=== PATIENT | male | born 1965 | race Caucasian/White ===

== ENCOUNTER → 2018-03-31 | Outpatient (CLI) | payer OTHER, SELFPAY ==
[2017-02-15 10:06] VITALS: BMI 28.7
[2018-03-31 17:59] LABS: ALB/GLOB Ratio 1.1 RATIO (0.9-2.4); AST(SGOT) 16 U/L (15-37); Alanine Aminotransfer ALT/SGPT 35 U/L (16-61); Albumin, Serum 3.8 g/dL (3.2-5.0); Alkaline Phosphatase 53 U/L (45-117); Anion Gap 6 (5-15); BUN 15 mg/dL (7-18); BUN/Creat Ratio 12.1 RATIO (10-20); Chloride 108 mmol/L (98-107); Cholesterol 159 mg/dL (200); Creatinine, Serum 1.24 mg/dL (0.70-1.30); EST Glomerular Filtration Rate 65 mL/min (>60); Est Glom Filt Rate - Afr Amer 79 mL/min (>60); Globulin 3.5 g/dL (2.2-4.2); Glucose 90 mg/dL (74-106); High Density Lipoprotein 44 mg/dL; Potassium 3.9 mmol/L (3.5-5.1); Protein, Total 7.3 g/dL (6.4-8.2); Sodium Level 141 mmol/L (136-145); Triglycerides 141 mg/dL; Very Low Density Lipoprotein 28 mg/dL (5-40)
[2018-04-04 09:57] LABS: Lipoprotein A <10 nmol/L (<75)
--- OUTSIDE RECORDS SUMMARY | 2018-07-14 20:19 | XMS RPT_ITS | CCD ---
:1965 External Reference #:[id number] Author Organization [facility] Care Team Providers Name Role Phone Unavailable Unavailable Unavailable Medications Medication Name Sig Date Prescriber Location No information No information [facility] available. available. [facility] (69969) Problems Active Problems Category Problem Name Status Date Location Joint disorders and Derangement of medial Active 08-14-2016 [facility] dislocations; meniscus Sports Medicine and trauma-related Orthopaedics (83236) Osteoarthritis Osteoarthritis of knee Active 09-06-2016 [facility] (17293) Past or Other Problems Category Problem Name Status Date Location Other connective Pes anserinus Completed 08-14-2016 [facility] tissue disease bursitis [facility] (91012) Other injuries and Other injury of Completed 09-06-2016 [facility] conditions due to unspecified body Sports Medicine and external causes region Orthopaedics (86624) Other non-traumatic Knee pain Completed 08-14-2016 [facility] joint disorders [facility] (27123) Superficial injury; Other injury of Completed 09-06-2016 [facility] contusion unspecified body Sports Medicine and region Orthopaedics (03536) Results Result Name Value Range Unit Interpretation Flag Date Location office visit on null Documentation of T Invalid 09-06-2016 [facility] Medical current medications Interpretation Code 09-06-2016 [facility] (procedure[facility] (00422) Documentation of Done Invalid 09-06-2016 [facility] current medications Interpretation Code 09-06-2016 [facility] (procedure[facility] (97050) Protein mass conc T 09-06-2016 [facility] 09-06-2016 [facility] (00644) Protein mass conc Done 09-06-2016 [facility] 09-06-2016 [facility] (88860) Tobacco smoking Never Invalid 09-06-2016 - [facility] status [facility] Interpretation Code 09-06-2016 [facility] (68811) Tobacco smoking Never 09-06-2016 - [facility] smoker 09-06-2016 [facility] (66478) Tobacco use CPHS Never Invalid 09-06-2016 - [facility] smoker Interpretation Code 09-06-2016 [facility] (30740) Documentation of T Invalid 08-14-2016 - [facility] current medications Interpretation Code 08-14-2016 [facility] (procedure) [facility] (14847) Documentation of Done Invalid 08-14-2016 - [facility] current medications Interpretation Code 08-14-2016 [facility] (procedure[facility] (76639) Protein mass conc Done 08-14-2016 - [facility] 08-14-2016 [facility] (43118) Protein mass conc T 08-14-2016 - [facility] 08-14-2016 [facility] (85274) Tobacco smoking Never Invalid 08-14-2016 - [facility] status NHIS Interpretation Code 08-14-2016 [facility] (70813) Tobacco smoking Never 08-14-2016 - [facility] status [facility]IS smoker 08-14-2016 [facility] (55957) Tobacco use CPHS Never Invalid 08-14-2016 - [facility] smoker Interpretation Code 08-14-2016 [facility] (00416) Vital Signs Vital Sign Description Value / Unit Date Location The following section is limited to 5 entries per type and includes entries from the following time range: 20160814 - 20160814. BMI (Body Mass Index) 28.69 kg/m2 08-14-2016 - 08-14-2016 [facility] (03043) Height 177.8 cm 08-14-2016 - 08-14-2016 [facility] (02100) Weight 90.72 kg 08-14-2016 - 08-14-2016 [facility] (74182) Plan of Treatment Plan Description Date Location Appointment Appointment 09-06-2016 - [facility] 09-06-2016 [facility] (13575) MRI Joint Lower MRI Joint Lower 08-14-2016 - [facility] Extremity Extremity 08-14-2016 [facility] (98177) X-Ray, Knee X-Ray, Knee 08-14-2016 - [facility] 08-14-2016 [facility] (37099) The following information is from the original human readable content Type Date Detail Appointment 01:30 PM Ani Bender, [address] [place] [address], [address], [place], [address], Pending order X-Ray, Knee Pending order MRI Joint Lower Extremity Type Date Detail Pending order X-Ray, Knee Pending order MRI Joint Lower Extremity Additional Source Comments FOR RECORDS PERTAINING TO PATIENTS WHO ARE OR HAVE BEEN ENROLLED IN A CHEMICAL DEPENDENCY/SUBSTANCE ABUSE PROGRAM, SOME INFORMATION MAY BE OMITTED. This clinical summary was aggregated from multiple sources. Caution should be exercised in using it in the provision of clinical care. This summary normalizes information from multiple sources, and as a consequence, information in this document may materially changethe coding, format and clinical context of patient data. In addition, data may be omittedin some cases. CLINICAL DECISIONS SHOULD BE BASED ON THE PRIMARY CLINICAL RECORDS. [facility] provides no warranty or guarantee of the accuracy or completeness of information in this document.
== END | disposition home or self-care (01) ==
LOC: BFHLAB 07-14 15:48
PROVIDERS: Family Provider Family Medicine; PCP Family Medicine; Visit Provider Family Medicine
DX: Z00.00 Encounter for general adult medical examination without abnormal findings (principal); Z80.0 Family history of malignant neoplasm of digestive organs
CPT/HCPCS: 36415; 80053; 80061; 83695

== ENCOUNTER 2018-05-02 08:10 | Day surgery (SDC) | payer OTHER, SELFPAY ==
[2018-05-02] VITALS (8 sets, daily range): BP systolic 92–131; BP diastolic 55–93; PULSE 54–82; RESP 16; TEMP 36.3–36.8; O2SAT 95–100; BMI 29.0
--- NOTE | 2018-05-02 09:15 | COLBX_PTH ---
PATIENT: HELENA SCHAFFER LOC: EN U#:[id number] AGE/SX: 53/M ROOM: RE05/02/[address]: Dr. Feliberto Chinchilla MD : 1965 BED: DIS: 05/02/2018 SPEC #: [id number] RECD: 05/02/18 09:52 STATUS: CINTHYA VASHTI #: [id number] PRIMITIVO: 05/02/18 09:[address]: Feliberto Chinchilla DEPT: SURGICAL PATHOLOGY RECD BY: Klaus Abdul ENTERED: 05/02/18 11:31 SP TYPE: COLON BX OTHR DR: Dr. Sánchez Bond, Tissues: SPLENIC FLEXURE Procedures: Surgery Specimen Level IV HEADER OPERATION: Colonoscopy (MOD) PRE-OP DIAGNOSIS: Screening TISSUE SUBMITTED: Biopsy of splenic flexure polyp MICROSCOPIC DIAGNOSIS Splenic flexure polyp, biopsy: Fragments of hyperplastic polyp. SJ:antwan 05/05/18 MICROSCOPIC DESCRIPTION Slides are reviewed. GROSS DESCRIPTION Received in fixative is one container labeled with the patient's name and designated splenic flexure polyp. The specimen consists of two irregular fragments of light [place] soft tissue that in aggregate measure 0.7 x 0.5 x 0.1 cm. The specimen is totally submitted in one cassette. / AM:antwan 05/02/18 TC:1 CPT: 82184
--- NOTE | 2018-05-02 09:20 | HP.PCM_ITS ---
Problem List (1) Screening for intestinal cancer Status: Acute History of Present Illness Date of Admission: 05/02/18 The patient is a 53 year old M who presents for screening colonoscopy. He has never had a previous procedure. He denies bright red blood per rectum or melena. No abdominal pain. He otherwise claims to be in good health. He is not on any anticoagulants Past Medical History Medical History: Medical History (Last Reviewed 02/15/17 @ 10:14 by Mira Rincon) [place] teeth extracted K08.499 Allergies naproxen Adverse Reaction (Verified 05/02/18 08:32) Hives Home Medications: Ambulatory Orders Medication Instructions Recorded NK 04/30/18 Smoking Status: Never smoker Tobacco Use: Non-smoker Review of Systems Constitutional: Denies: Anorexia HEENT: Denies: Difficulty Swallowing Cardiovascular: Denies: Chest Pain Respiratory: Denies: Cough Gastrointestinal: Denies: Abdominal Pain, Melena Musculoskeletal: Reports: Joint Pain Psychiatric: Denies: Anxiety Endocrine: Denies: Change in Body Habitus VTE Information - Inpt Only VTE Present on Admission: No Patient Problems: Active and Suspected Problems (Last Reviewed 02/15/17 @ 10:14 by Mira Rincon) Screening for intestinal cancer (Acute) - Physical Exam General: Alert, Oriented x3, Cooperative, No apparent distress HEENT: Atraumatic Oral: Moist Mucosa Neck: Supple Lungs: Clear to auscultation, Normal air movement Cardiovascular: Regular rate, Regular Rhythm Abdomen: Bowel Sounds Present, Soft, Non Tender Extremities: No Calf Tenderness Psych/Mental Status: Normal Affect Vital Signs Temp Pulse Resp BP Pulse Ox 98.3 F 82 16 123/79 H 100 05/02/18 08:33 05/02/18 08:33 05/02/18 08:33 05/02/18 08:33 05/02/18 08:33 Oxygen Delivery Method Room Air Weight: 202 lb 9.677 oz Body Mass Index (BMI) 29.0 Assessment/Plan All Active Problems (Last Reviewed 02/15/17 @ 10:14 by Mira Rincon) Screening for intestinal cancer (Acute) 53-year-old gentleman who presents for screening colonoscopy. I have discussed with him technique, benefits, risks, alternatives. He has had an opportunity to ask and have questions answered. He presents via our open access program. We will proceed as noted. Feliberto Chinchilla M.D., F.A.C.S.
--- NOTE | 2018-05-02 09:41 | OP.ENDO_ITS ---
05/02/2018 Sánchez Bond [address] [place] [address] Re : Colonoscopy procedure for Sukhjinder Lopez Dear Dr. Bond This procedure was performed on Wednesday, May 02, 2018. My impressions and recommendations are as follows: Impressions : - One 5 mm polyp at the splenic flexure, removed with a cold biopsy forceps. Resected and retrieved. - The examination was otherwise normal. Recommendations : - Discharge patient to home. - Resume previous diet. - Continue present medications. - Repeat colonoscopy in 5 years for surveillance based on pathology results. - Telephone my office for pathology results in 1 week. My findings are described in the full procedure note, which is enclosed. If I can be of further assistance, please feel free to contact me at Doctor phone number(s): Work: . Sincerely, Feliberto Chinchilla MD 05/02/2018 9:40:40 AM This report has been signed electronically.
== END 2018-05-02 10:34 | disposition home or self-care (01) ==
LOC: EN 08:10 → AC 08:12
PROVIDERS: Family Provider Family Medicine; PCP Family Medicine; Referring Provider Surgery; Visit Provider Surgery
PROC: 0DJD8ZZ Inspection of Lower Intestinal Tract, Via Natural or Artificial Opening Endoscopic (ICD-10-PCS; CPT 45378; principal; 2018-05-02 09:10)
DX: Z12.11 Encounter for screening for malignant neoplasm of colon (principal); K63.5 Polyp of colon
CPT/HCPCS: 45380; 88305; 99152; 99153; J7120

== ENCOUNTER → 2019-09-24 09:49 | Outpatient (CLI) | payer OTHER, SELFPAY ==
[2019-09-24 09:20] VITALS: BMI 29.0
--- NOTE | 2019-09-24 09:50 | RAD_ITS ---
STUDY: X-RAY - RIGHT KNEE REASON FOR EXAM: Male, 54 years old. Bilateral knee pain. TECHNIQUE: 4 view(s) of the knee. COMPARISON: None. FINDINGS: Normal visualized distal femur. Normal visualized proximal tibia and fibula. Normal proximal tibiofibular articulation. There is no acute fracture, dislocation or destructive osseous pathology. Normal medial femorotibial compartment. Normal lateral femorotibial compartment. Normal patellofemoral articulation. There is no demonstrated joint effusion. The soft tissue structures are unremarkable. RAD/Knee 4 or More Views IMPRESSION: Normal x-ray examination of the knee. Electronically Signed: Vinod Landis DO at 16:51 EDT Tel [phone], Service support ,
--- NOTE | 2019-09-24 09:55 | RAD_ITS ---
STUDY: X-RAY - LEFT KNEE REASON FOR EXAM: Male, 54 years old. Bilateral knee pain. TECHNIQUE: 4 view(s) of the knee. COMPARISON: None. FINDINGS: Normal visualized distal femur. Normal visualized proximal tibia and fibula. Normal proximal tibiofibular articulation. There is no acute fracture, dislocation or destructive osseous pathology. Normal medial femorotibial compartment. There is a small irregularity along the articular surface of the lateral femoral condyle. Otherwise normal lateral femorotibial compartment. There is mild degenerative arthrosis of the patellofemoral articulation. There is no demonstrated joint effusion. The soft tissue structures are unremarkable. RAD/Knee 4 or More Views IMPRESSION: Mild arthrosis without fracture or dislocation. Electronically Signed: Vinod Landis DO at 16:52 EDT Tel [phone], Service support ,
== END ==
PROVIDERS: PCP Family Medicine; Referring Provider Physician Assistant; Visit Provider Physician Assistant
DX: M17.0 Bilateral primary osteoarthritis of knee (principal)
CPT/HCPCS: 73564

== ENCOUNTER → 2021-03-09 11:55 | Outpatient (CLI) | payer OTHER, SELFPAY ==
[2021-03-09 15:14] LABS: Absolute Lymphocyte Count 1.33 X10^3/uL (0.83-4.51); Absolute Neutrophil Count 4.3 X10^3/uL (2.0-7.7); Basophil# 0.07 X10^3/uL; Basophil% 1.1 % (0-1); Eosinophil# 0.18 X10^3/uL; Eosinophils% 2.8 % (0-5); Hematocrit 45.7 % (40-54); Hemoglobin 15.6 g/dL (13.0-16.5); Lymphocyte # 1.33 X10^3/ul (0.83-4.51); Lymphocyte % 20.6 % (19-41); Mean Corp Hgb Conc 34.1 g/dL (32-36); Mean Corpuscular Hgb 31.3 pg (27.0-32.0); Mean Corpuscular Volume 91.8 fL (80-94); Monocyte# 0.59 X10^3/uL; Monocyte% 9.1 % (0-10); NRBC Flagged by Analyzer 0 % (0-5); Neutrophil # 4.25 X10^3/uL (2.7-7.7); Neutrophil % 65.9 % (47-70); Platelet Count 279 K/mm3 (150-450); RBC Distribution Width CV 12.1 % (11.6-14.6); RBC Distribution Width SD 40.8 fl (35.1-43.9); Red Blood Count 4.98 M/mm3 (4.6-6.2); White Blood Count 6.5 K/mm3 (4.4-11.0)
[2021-03-09 15:48] LABS: AST(SGOT) 17 U/L (15-37); Alanine Aminotransfer ALT/SGPT 38 U/L (16-61); Albumin, Serum 3.5 g/dL (3.2-5.0); Alkaline Phosphatase 47 U/L (45-117); Anion Gap 7 (5-15); BUN 15 mg/dL (7-18); BUN/Creat Ratio 12.9 RATIO (10-20); Calcium,Total 8.8 mg/dL (8.5-10.1); Chloride 107 mmol/L (98-107); Cholesterol 182 mg/dL (200); Creatinine, Serum 1.16 mg/dL (0.70-1.30); EST Glomerular Filtration Rate 70 mL/min (>60); Est Glom Filt Rate - Afr Amer 84 mL/min (>60); Globulin 3.6 g/dL (2.2-4.2); Glucose 88 mg/dL (74-106); High Density Lipoprotein 47 mg/dL; Potassium 4.1 mmol/L (3.5-5.1); Protein, Total 7.1 g/dL (6.4-8.2); Sodium Level 140 mmol/L (136-145); Triglycerides 89 mg/dL; Very Low Density Lipoprotein 18 mg/dL (5-40)
== END ==
PROVIDERS: PCP Family Medicine; Referring Provider Family Medicine; Visit Provider Family Medicine
DX: Z00.00 Encounter for general adult medical examination without abnormal findings (principal); Z12.5 Encounter for screening for malignant neoplasm of prostate
CPT/HCPCS: 36415; 80053; 80061; 84153; 85025; G0103

== ENCOUNTER 2021-03-14 18:22 | Outpatient (CLI) | payer OTHER, SELFPAY | END 2021-03-14 23:59 | disposition short-term general hospital (02) | LOC: LABSPEC 03-15 08:33 | PROVIDERS: PCP Family Medicine; Visit Provider Family Medicine | DX: U07.1 COVID-19 (principal) | CPT/HCPCS: 87635; U0003; U0005 ==

== ENCOUNTER → 2021-09-28 | Outpatient (CLI) | payer OTHER, SELFPAY ==
--- NOTE | 2021-09-28 17:07 | RAD_ITS ---
EXAM: XR CHEST, 2 VIEWS CLINICAL INDICATION: CHEST PAIN TECHNIQUE: Frontal and lateral views of the chest. This report was created using [employer] report generation technology. COMPARISON: None. FINDINGS: LUNGS AND PLEURAL SPACES: Unremarkable. No consolidation or edema. No pneumothorax. No effusion. HEART: Unremarkable. Cardiac silhouette not enlarged. MEDIASTINUM: Central airways and mediastinal contour are unremarkable. BONES/JOINTS: Unremarkable. SOFT TISSUES: Unremarkable. RAD/Chest PA and Lateral IMPRESSION: No radiographic evidence of acute cardiopulmonary disease. Electronically Signed: Kirt Guzman MD at 3:08 EDT ,
== END | disposition home or self-care (01) ==
LOC: MTRAD 17:05
PROVIDERS: PCP Family Medicine; Referring Provider Family Medicine; Visit Provider Family Medicine
DX: R07.9 Chest pain, unspecified (principal)
CPT/HCPCS: 71046

== ENCOUNTER → 2021-10-27 | Outpatient (CLI) | payer OTHER, SELFPAY ==
--- NOTE | 2021-10-27 10:41 | STE_ITS ---
Reason For Study: CHEST PAIN Stress Results Protocol: Manuel Protocol Maximum Predicted HR: 165 bpm Target HR: 140 bpm % Maximum Predicted HR: 97 % DurationHeart Rate Stage (mm:ss) (bpm) BP BASELINE 72 142/78 STAGE 1 3:00 106 160/80 STAGE 2 3:00 117 160/80 STAGD 3 3:00 134 164/68 STAGE 4 3:00 160 168/70 RECOVERY 100 124/70 Stress Duration: 12:00 mm:ss Maximum Stress HR: 160 bpm METS: 13 Baseline Echocardiogram Findings Stress Echo Wall motion Data Resting WM Intermediate WM Stress WM Resting Wall Motion Wall Motion Stress All segments Normal. All segments Hyperkinetic. Ejection Fraction 60 %. Ejection Fraction 70 %. Stress Results Heart rate response: Technically adequate: Percent predicted maximal heart rate greater than 85% Blood pressure response: Resting hypertension-appropriate response Rhythm: There was an isolated PVC during exercise Functional capacity: Good Stopped secondary to: Dyspnea. EKG Data Baseline ECG: Normal sinus rhythm. Peak exercise ECG: No obvious ECG change. Symptoms with Stress No complaint of chest discomfort during exercise or recovery. ECHO/Stress Test Echo w/o Contrast Interpretation Summary Contrast injection performed Negative: Technically adequate (percent predicted maximal heart gradient 85%) s tress echocardiogram Ordering Physician: Sánchez Bond Performed By: Rajendra Damico RCS
== END | disposition home or self-care (01) ==
LOC: CVS 10:35
PROVIDERS: PCP Family Medicine; Visit Provider Family Medicine
DX: R07.9 Chest pain, unspecified (principal)
CPT/HCPCS: 93017; 93350

== ENCOUNTER 2022-11-25 11:54 | Emergency (ER) | payer OTHER, SELFPAY ==
[2022-11-25 11:55] VITALS: BP 147/65; PULSE 80; RESP 18; TEMP 36.3; O2SAT 97; BMI 29.4
[2022-11-25 11:57] VITALS: BMI 29.4
[2022-11-25 12:18] LABS: Bedside Glucose 102 mg/dL (74-106)
--- NOTE | 2022-11-25 12:48 | EKG12_ITS ---
Test Reason : Blood Pressure : / mmHG Vent. Rate : 067 BPM Atrial Rate : 067 BPM P-R Int : 132 ms QRS Dur : 078 ms QT Int : 408 ms P-R-T Axes : 027 -12 006 degrees QTc Int : 431 ms Normal sinus rhythm Normal ECG Confirmed by SHAKIRA BENITEZ MD ([id number]), food expeditor OMAR IRWIN ([id number]) on 11/27/2022 2:00:31 PM Referred By: Confirmed By:SHAKIRA BENITEZ MD
--- NOTE | 2022-11-25 12:48 | RAD_ITS ---
STUDY: X-RAY CHEST REASON FOR EXAM: Male, 57 years old. CAD TECHNIQUE: Single AP portable view of the chest. COMPARISON: 09/28/2021 FINDINGS: EKG leads overlie the chest The lungs are clear and expanded. There is no demonstrated pleural abnormality. Normal size heart. Normal mediastinum and charanjit. Normal visualized pulmonary arteries. Normal visualized aortic arch and descending thoracic aorta. Normal visualized thoracic spine. Normal visualized ribs, clavicles, and shoulders. There is no demonstrated abnormality of the visualized soft tissue structures of the upper abdomen. RAD/Chest 1 View (Portable) IMPRESSION: Normal x-ray examination of the chest. Electronically Signed: Tulio Muñoz MD at 13:38 EDT ,
--- NOTE | 2022-11-25 12:49 | EDS_ITS ---
HPI History of Present Illness Chief Complaint: Neuro S/Sx Narrative Narrative: 57-year-old male who denies significant past medical history presents with lightheadedness that began this morning. He also thought that maybe his left biceps area was numb and tingly this morning as well. He noticed the lightheadedness first. He states that he worries about elevated blood pressure at times, and when he took it a few weeks ago it was borderline in the 140 systolic. He denies any chest pain or shortness of breath, no recent nausea or vomiting, no diarrhea. He did note that over the last few weeks there were brief periods of times where he felt lightheaded, like he needed to eat food, and when he did, he felt immediately improved. He presents because of the paresthesia of his left biceps area and perhaps some numbness of his left fingertips that is essentially resolved, and more so because of the lightheadedness. [facility] Medical History Screening for intestinal cancer Allergy/AdvReac Type Severity Reaction Status Date / Time naproxen AdvReac Hives Verified 03/17/21 14:21 Family History Mother Breast cancer Father CAD (coronary artery disease) Surgical History History of colonoscopy (~04/2018) [place] teeth extracted Social History Smoking Status: Never smoker alcohol intake: current details: <1 per day ROS ROS ED ROS Narrative Constitutional: No fever, no chills. HEENT: No sore throat. No neck pain. No loss of vision. No rhinorrhea. Cardiovascular: No chest pain. No palpitations. No pedal edema. Respiratory: No cough, no shortness of breath. Abdominal: No abdominal pain. No nausea. No vomiting. Genitourinary: No dysuria. No hematuria. Musculoskeletal: No myalgias. No arthralgias. Neurologic: No headaches. No dizziness. Positive lightheadedness. Paresth esias of left arm/fingertips-resolved Skin: No rash. No change in color. Psychiatric: No depression. No anxiety. EXAM Physical Exam Narrative Exam Narrative: Afebrile. Vital signs noted. HEENT: Normocephalic. Atraumatic. PERRL, EOMI. Neck soft and supple. No point tenderness or step off. Cardiovascular: Regular rate and rhythm. No murmurs, rubs, or gallops appreciated. Respiratory: No tachypnea. Lungs clear to auscultation bilaterally. Gastrointestinal: Abdomen soft, nontender, with normoactive bowel sounds. No rebound or guarding. Neurological: Awake. Alert. Nonfocal, nonlateralizing. NIH stroke scale equals 0. Skin: No rash. Normal color. No pallor. Musculoskeletal: No pedal edema. Full range of motion extremities. Const Vital Signs: 11/25/22 11:55 11/25/22 13:16 11/25/22 15:40 Temperature 97.3 F L Temperature Source Temporal Pulse Rate 80 51 L Pulse Rate [Lying] 56 L Pulse Rate [Sitting (for 1 minute prior to obtaining)] 59 L Pulse Rate [Standing (for 1 minute prior to obtaining)] 73 Respiratory Rate 18 14 Blood Pressure 147/65 H 135/85 H Blood Pressure [Lying] 126/81 H Blood Pressure [Sitting (for 1 minute prior to obtaining)] 133/91 H Blood Pressure [Standing (for 1 minute prior to obtaining)] 132/97 H Blood Pressure Mean 92 101 Blood Pressure Mean [Lying] 96 Blood Pressure Mean [Sitting (for 1 minute prior to obtaining)] 105 Blood Pressure Mean [Standing (for 1 minute prior to obtaining)] 108 Pulse Ox 97 99 Oxygen Delivery Method Room Air Room Air MDM MDM MDM Narrative Medical decision making narrative: Given his vague symptoms, stroke team was not called from triage. Upon my evaluation, I do not feel that stroke team is indicated as his NIH stroke scale is 0, and the history and physical is more suggestive of paresthesia versus cervical radiculopathy, and with his elevated blood pressure, this may be slight anxiety. I do feel that basic work-up should be performed to look for any dehydration, and I will also check his magnesium, and serial troponins as well for anginal equivalent of his left arm paresthesia. I do not feel CT of the brain is indicated. He has a normal neurological examination. EKG was obtained and interpreted by myself independently as normal sinus rhythm at 67 bpm without ectopy or acute ST changes. No STEMI. I reviewed his laboratory work and he has a normal white count of 5.6, hemoglobin normal at 16.1, hematocrit 46.1, platelet count normal at 298. His electrolyte panel is remarkable for chloride of 110 which I think is nonspecific, otherwise grossly unremarkable. Initial high-sensitivity troponin is 5. Repeat at 2 hours is also 5 for a delta of 0. Chest x-ray in 1 view interpreted by myself independently shows no evidence of an acute process, no pneumonia or pneumothorax. Additionally, I reviewed the radiology report which confirms my independent interpretation. His blood pressure has come down to borderline low at 135/85. I believe it is fluctuating, he was told he should keep an eye on his blood pressure, and follow-up with his primary care provider. I do not feel that any blood pressure medications need to be started currently. I do feel that there may be some anxiety regarding his blood pressure which causes slight elevation in it at times. Upon repeat examination he feels improved. I do not feel he requires observation or admission. I feel he can be discharged to follow-up with his primary care provider. Return instructions were reviewed. Disposition is discharged home in stable condition. History & Record Review Discussion w/independent historian: Patient Additional record(s) reviewed:: Prior outpatient record and Prior ED visit Lab Data Attestation: I reviewed the patient's lab results. Labs: Laboratory Results - last 24 hr 11/25/22 11/25/22 12:00 14:20 WBC 5.6 RBC 4.95 Hgb 16.1 Hct 46.1 MCV 93.1 MCH 32.5 H MCHC 34.9 RDW Std Deviation 40.4 RDW Coeff of Nathan 11.9 Plt Count 298 MPV 10.1 Immature Gran % (Auto) 0.400 Neut % (Auto) 69.6 Lymph % (Auto) 19.2 Waldo % (Auto) 8.1 Eos % (Auto) 1.6 Baso % (Auto) 1.1 H Absolute Neuts (auto) 3.9 Absolute Lymphs (auto) 1.07 Nucleated RBC % 0 Sodium 139 Potassium 4.0 Chloride 110 H Carbon Dioxide 26.0 Anion Gap 3 L BUN 13 Creatinine 1.22 Estim Creat Clear Calc 69.81 Est GFR (MDRD) Af Amer 79 Est GFR (MDRD) Non-Af 65 BUN/Creatinine Ratio 10.7 Glucose 102 Calcium 9.1 Magnesium 2.3 Troponin I High Sens 5 5 POC Glucose 102 Radiography Diagnostic Testing: Clinical Impression(s) from Imaging Studies Chest X-Ray 11/25/22 12:48 IMPRESSION: Normal x-ray examination of the chest. Electronically Signed: Tulio Muñoz MD at 13:38 EDT Reading Location ID and State: [address] [place] [address] , Service support , Discharge Plan Triage Chief Complaint: Neuro S/Sx ED Provider: Ton Cueto Dx/Rx/DC Orders Clinical Impression: Paresthesia, Lightheadedness Instructions: ED Near-Fainting, Uncertain Cause, ED Paraesthesias Primary Care Provider: Sánchez Bond Referrals: Sánchez Bond DO [Primary Care Provider] - 3-5 Days Disposition Disposition: Home, Self Care
[2022-11-25 13:00] LABS: Absolute Lymphocyte Count 1.07 X10^3/uL (0.83-4.51); Absolute Neutrophil Count 3.9 X10^3/uL (2.0-7.7); Basophil# 0.06 X10^3/uL; Basophil% 1.1 % (0-1); Eosinophil# 0.09 X10^3/uL; Eosinophils% 1.6 % (0-5); Hematocrit 46.1 % (40-54); Hemoglobin 16.1 g/dL (13.0-16.5); Lymphocyte # 1.07 X10^3/ul (0.83-4.51); Lymphocyte % 19.2 % (19-41); Mean Corp Hgb Conc 34.9 g/dL (32-36); Mean Corpuscular Hgb 32.5 pg (27.0-32.0); Mean Corpuscular Volume 93.1 fL (80-94); Mean Platelet Vol. 10.1 fl (6.2-12.0); Monocyte# 0.45 X10^3/uL; Monocyte% 8.1 % (0-10); NRBC Flagged by Analyzer 0 % (0-5); Neutrophil # 3.88 X10^3/uL (2.7-7.7); Neutrophil % 69.6 % (47-70); Platelet Count 298 K/mm3 (150-450); RBC Distribution Width CV 11.9 % (11.6-14.6); RBC Distribution Width SD 40.4 fl (35.1-43.9); Red Blood Count 4.95 M/mm3 (4.6-6.2); White Blood Count 5.6 K/mm3 (4.4-11.0)
[2022-11-25 13:16] VITALS: BP 126/81; BP 132/97; BP 133/91; PULSE 56; PULSE 59; PULSE 73
[2022-11-25 13:20] LABS: Anion Gap 3 (5-15); BUN 13 mg/dL (7-18); BUN/Creat Ratio 10.7 RATIO (10-20); Calcium,Total 9.1 mg/dL (8.5-10.1); Chloride 110 mmol/L (98-107); Creatinine, Serum 1.22 mg/dL (0.70-1.30); EST Glomerular Filtration Rate 65 mL/min (>60); Est Glom Filt Rate - Afr Amer 79 mL/min (>60); Estimated Creatinine Clearance 69.81 ml/min; Glucose 102 mg/dL (74-106); Magnesium 2.3 mg/dL (1.6-2.6); Sodium Level 139 mmol/L (136-145); Troponin-I HS (w/2H Reflex) 5 pg/mL (3.0-78.0)
[2022-11-25] MEDS: 0.9% Normal Saline (1000mL) 1,000 ML 1000 ML IV (13:28)
[2022-11-25 14:57] LABS: Reflex Troponin-HS? (from REC) Y
[2022-11-25 15:28] LABS: Troponin-I HS 5 pg/mL (3.0-78.0)
[2022-11-25 15:40] VITALS: BP 135/85; PULSE 51; RESP 14; O2SAT 99
== END 2022-11-25 16:15 | disposition home or self-care (01) ==
PROVIDERS: Emergency Provider Emergency Medicine; PCP Family Medicine; Visit Provider Emergency Medicine
DX: R42 Dizziness and giddiness (principal); R20.2 Paresthesia of skin
CPT/HCPCS: 71045; 80048; 82962; 83735; 84484; 85025; 93005; 96360; 96361; 99284; J7030

== ENCOUNTER → 2023-05-06 | Outpatient (CLI) | payer OTHER, SELFPAY ==
--- OUTSIDE RECORDS SUMMARY | 2023-05-06 10:46 | XMS RPT_ITS | CCD ---
Author Name Unknown Address [address] [place] [address] Organization [facility] Care Team Providers Care Kiln Remover Name Role Phone Adrienne Dixon Unavailable [phone] Jessie Armas Unavailable Adrienne Dixon Unavailable Zachary Bond DO A Primary Care Provider Varun Zachary MURPHY A Primary Care Provider ZACHARY BOND A Referring Unavailable VARUN, ZACHARY A Primary Care Unavailable ADRIENNE DIXON Attending Unavailab le VARUN, ZACHARY A Primary Care Unavailable ADRIENNE DIXON Attending Unavailab le VARUN, ZACHARY A Primary Care Unavailable ADRIENNE DIXON Referring Unavailab le ADRIENNE DIXON Attending Unavailab le VARUN, ZACHARY A Primary Care Unavailable ADRIENNE DIXON Referring Unavailab le VARUN, ZACHARY A Primary Care Unavailable ADRIENNE DIXON Referring Unavailab le CHICADRIENNE MENDOZA Attending Unavailab le Medications Completed/Discontinued Medications Medication Drug Class(es) Dates Sig (Normalized) Sig (Original) 2 ml sodium hyaluronate 10 mg/ml prefilled syringe (6 sources) Start: 11-15-2022 End: 11-15-2022 sodium hyaluronate 20 mg injection (EUFLEXXA) Problems Active Problems Problem Classification Problem Date Documented Date Episodic/Chronic Conditions associated with dizziness or vertigo (1 source) Dizziness; Translations: [Dizziness and giddiness] 11-25-2022 Episodic Joint disorders and dislocations; trauma-related (10 sources) Derangement of medial meniscus; Translations: [Loose body in knee, left knee] Onset: 08-14-2016 08-14-2016 Chronic Osteoarthritis (4 sources) Osteoarthritis of knee; Translations: [Primary gonarthrosis, bilateral] Onset: 09-06-2016 09-06-2016 Chronic Other connective tissue disease (1 source) Pain in left arm; Translations: [Pain in left arm] 11-25-2022 Episodic Other non-traumatic joint disorders (3 sources) Pain in right knee; Translations: [Pain in joint, lower leg] 11-02-2022 Episodic Residual codes; unclassified (1 source) Procedure not done; Translations: [Procedure and treatment not carried out, unspecified reason] Episodic Past or Other Problems Problem Classification Problem Date Documented Da te Episodic/Chronic Other connective tissue disease (5 sources) Pes anserinus bursitis; Translations: [Other bursitis of knee, left knee] Onset: 08-14-2016 08-14-2016 Episodic Other non-traumatic joint disorders (5 sources) Knee pain; Translations: [Pain in left knee] Onset: 08-14-2016 08-14-2016 Episodic Superficial injury; contusion (2 sources) Other injury of unspecified body region; Translations: [Other injury of unspecified body region] Onset: 09-06-2016 09-06-2016 Episodic Results Test Name Value Interpretation Reference Range Facil ity Vital Signs Date Time Vital Sign Value Performing Clinician Delmy boggs 08-14-2016 15:00-0400 BMI (Body Mass Index) 28.69 kg/m2 [facility] Work Phone: 08-14-2016 15:00-0400 Height 177.8 cm [facility] Work Phone: 08-14-2016 15:00-0400 Weight 90.72 kg [facility] Work Phone: Encounters Encounter Date Encounter Type Care Provider Facility Start: 11-25-2022 End: 11-25-2022 [facility] Facility:[facility] Start: 11-25-2022 End: 11-25-2022 Patient encounter procedure Vignesh Parks APRN.GEOPHYSICAL PROSPECTOR Work Phone: [facility] Procedures Date Procedure Procedure Detail Performing Clinician Start: 11-15-2022 Arthrocentesis aspir &/inj major jt/bursa w/o us Adrienne Dixon DO Work Phone: Start: 11-09-2022 Arthrocentesis aspir &/inj major jt/bursa w/o us Adrienne Dixon DO Work Phone: Start: 11-02-2022 Arthrocentesis aspir &/inj major jt/bursa w/o us Adrienne Dixon DO Work Phone: Plan of Treatment Date Care Activity Detail Author Start: 11-09-2022 Influenza vaccination [facility] Start: 03-11-2022 DEPRESSION ASSESSMENT DEPRESSION ASSESSMENT [facility] Start: 11-09-2021 Influenza vaccination INFLUENZA (#1) [facility] Start: 2021 PROSTATE CANCER SCREENING DISCUSSION PROSTATE CANCER SCREENING DISCUSSION [facility] Start: 11-23-2020 COVID-19 VACCINE (3 - Booster for Moderna series) COVID-19 VACCINE (3 - Booster for Moderna series) [facility] Start: 08-18-2020 COVID-19 VACCINE (3 - Moderna series) COVID-19 VACCINE (3 - Moderna series) [facility] Start: 09-06-2016 End: 09-06-2016 Appointment Appointment [facility] Work Phone: Start: 08-14-2016 End: 08-14-2016 Mri jnt of lwr extre w/o dye MRI Joint Lower Extremity [facility] Work Phone: Start: 08-14-2016 End: 08-14-2016 X-ray exam, knee, 4 or more X-Ray, Knee [facility] Work Phone: Start: 2016 SHINGRIX VACCINE (1 of 2) SHINGRIX VACCINE (1 of 2) [facility] Start: 2011 COLOGUARD (FIT-DNA) COLOGUARD (FIT-DNA) [facility] Start: 2011 Colonoscopy COLONOSCOPY [facility] Start: 2011 COLORECTAL CANCER SCREENING COLORECTAL CANCER SCREENING [facility] Start: [address] COLONOGRAPHY [facility] Start: 2011 DIABETES SCREEN DIABETES SCREEN [facility] Start: 2011 Diabetes Screening Diabetes Screening [facility] Start: 2011 FECAL OCCULT BLOOD FECAL OCCULT BLOOD [facility] Start: 2011 SIGMOIDOSCOPY SIGMOIDOSCOPY [facility] Start: 2001 Lipid 1996 panel - Serum or Plasma Lipid Screening [facility] Start: 2001 LIPID SCREEN LIPID SCREEN [facility] Start: 1985 Urine microalbumin profile [facility] Start: 1984 HEPATITIS C SCREENING HEPATITIS C SCREENING [facility] Start: 1984 HIV SCREENING HIV SCREENING [facility] Start: 1978 Adult depression screening assessment DEPRESSION SCREENING [facility] Start: 1966 HEPATITIS B (1 of 3 - 3-dose series) HEPATITIS B (1 of 3 - 3-dose series) [facility] Start: 1966 Hepatitis B Vaccine (1 of 3 - 3-dose series) Hepatitis B Vaccine (1 of 3 - 3-dose series) [facility] Immunizations Immunization Date Immunization Notes Care Provider Mary yanez 01-14-2010 influenza virus vaccine, unspecified formulation Rick Hawthorne APRN.[facility] Work Phone: [facility] Work Phone: Payers Date Payer Category Payer Unknown [facility] [employer] [employer] [id number] 2019-Present [phone] [address] [place] [address] PPO [id number] 2019 Unknown [facility] [employer] [place] [employer] [id number] 2019-Present [phone] [address] [place] [address] PPO [id number] 2019 Unknown [id number] Social History Date Type Detail Facility Tobacco smoking status NHIS Tobacco smoking consumption unknown [facility] Start: 1965 Sex Assigned At Not on file [facility] Start: 09-15-2021 End: 09-25-2021 Exposure to SARS-CoV-2 (event) Yes [facility] Work Phone: Start: 07-27-2022 Tobacco smoking status NHIS Never smoked tobacco [facility] Start: 07-27-2022 Tobacco use and exposure Smokeless tobacco non-user [facility] Start: 07-27-2022 End: 11-02-2022 History of Social function [facility] Start: 07-27-2022 End: 11-02-2022 Tobacco use panel [facility] National Score (1-100), lower number is lower risk 57 [facility] Clinical Notes 09-25-2021 to 11-25-2022 Vignesh Parks APRN.CNP - 11/25/2022 1:30 PM Adrienne Hendricks DO - 11/15/2022 11:16 AM Maren Roberson RN - 11/15/2022 11:12 AM Adrienne Hendricks DO - 11/09/2022 9:56 AM EDT Note Date & Type Note Facility 11-25-2022 Note HNO ID: [id number] Author: Vignesh Parks APRN.PASCUAL Service: ? Author Type: Nurse Practitioner Type: Progress Notes Filed: 11/25/2022 1:31 PM Note Text: Patient triaged at [facility]. Here today with left arm pain/no injury, and dizziness. Hx of heart disease. I will refer to ER. Patient in no visible distress at time of triage. [facility] 11-25-2022 History of Present illness Narrative Patient triaged at [facility]. Here today with left arm pain/no injury, and dizziness. Hx of heart disease. I will refer to ER. Patient in no visible distress at time of triage. documented in this encounter [facility] 11-15-2022 Note HNO ID: [id number] Author: Adrienne Dixon, DO Service: ? Author Type: Physician Type: Progress Notes Filed: 11/15/2022 12:05 PM Note Text: Follow Up Visit Chief Complaint Helena Lopez is a 57 year old male who presents today for follow up office visit. Patient presents with: Left Knee - Injections, Follow Up Right Knee - Follow Up, Injections History of Present Illness PAIN EVALUATION No data found in the last 1 encounters. HPI: Helena Lopez is a 57 year old male for a follow up visit / Eulfexxa injection to B/L knees. Denies pain. Is there any overall improvement in your condition? Yes, pain is getting better. C/o very mild pain every once in awhile. Any new injury, since being seen last: No REVIEW OF SYMPTOMS: Patient did not have, and does not currently have, any weight loss, malaise, fever, chills, headache, chest pain, chest pressure, palpitations, cough, shortness of breath, orthopnea, paroxsymal nocturnal dyspnea, nausea, vomiting, diarrhea, constipation, melena, hematochezia, urinary difficulties, prolonged bleeding, easily bruising, heat or cold intolerance, new onset joint pain or swelling, new onset extremity weakness or numbness, new onset auditory or visual disturbances, lightheadedness, dizziness, partial loss of consciousness or full loss of consciousness. No current outpatient medications on file. No current facility-administered medications for this visit. Physical Exam Vitals: There were no vitals taken for this visit. Psych: Pleasant, good affect and mood General Appearance: Well appearing, alert, in no acute distress, well-hydrated, well nourished.. Skin: Skin color, texture, turgor normal, no suspicious rashes or lesions. Peripheral Pulses: Normal. Neurologic: Gait normal. Reflexes normal and symmetric. Sensation grossly intact.. Lymph Nodes: No cervical lymphadenopathy, No supraclavicular lymphadenopathy, No axillary lymphadenopathy., and No inguinal lymphadenopathy.. Respiratory: No recent pulmonary infection, hemoptysis, chronic cough, or shortness of breath at rest Rheumatologic: Joint deformities: bilateral knee pain Ortho Exam Assessment and Plan Radiographs: No imaging to review. Impression: No diagnosis found. Today, in detail, through a thorough evaluation, we discussed possible etiologies of pain and our plans for further diagnostic and therapeutic interventions. We discussed strategies for decreasing pain and improving strength, stability and motion. Patient's questions were answered in detailed. Patient verbalizes understanding and agrees with the treatment plan as discussed. Discussed with patient possible options for treatment. Patient elected proceed with injection. Patient told not to submerge the injected area for 24 hours in a hot tub, or bath, injection may take 2 weeks for improvement to be noticed, follow-up in 2 -6 weeks if symptoms do not resolve. All questions answered patient agreement of plan. Apply ice Limit activities as discussed Rest Do not submerge limb in water for 24 hours Cont current meds Watch sugars/decrease carbs Call if warm/hot/red Discussed with patient that if the injection does not work after 2 to 4 weeks to come back for reevaluation. Discussed the next 3 days may feel worse before it feels better. Discussed if having continued pain to return. May get injection every 3 months Large Joint Arthro/Inj: bilateral knee joints Informed Consent Consent Obtained: Verbal [place] Protocol A moment to CARE was completed. SIGN IN Personnel directly involved with the procedure wore the appropriate PPE. Special Equipment: Yes Patient/Surrogate Stated/Verified: Date of , Relevant allergies, Intended procedure and Patient name TIME OUT Intended patient and procedure match the source document(s). Consent documented and matches the intended procedure. Relevant labs, photos, and/or imaging studies have been reviewed. Correct side/site marked and visible. Medications required for procedure verified. Fire risk assessed and interventions discussed. No implant(s) inserted. 11/15/2022 11:34 AM The procedure site was prepped in the usual sterile fashion. Site: bilateral knee joints Medications (Right): 20 mg sodium hyaluronate 10 mg/mL(mw 2.4 -3.6 million) Medications (Left): 20 mg sodium hyaluronate 10 mg/mL(mw 2.4 -3.6 million) Outcome: Tolerated well, no immediate complications Post-injection instructions were reviewed with the patient and the patient voiced understanding of these instructions. SIGN OUT All instruments, equipment, possible retained foreign bodies accounted for. Adrienne Dixon D.O. [facility] 11-15-2022 Note HNO ID: [id number] Author: Maren Wright RN Service: ? Author Type: ? Type: Progress Notes Filed: 11/15/2022 12:05 PM Note Text: Euflexxa #3, B/L knee LOT # [id number] EXP 06-30-2023 Maren Wright RN [facility] 11-15-2022 History of Present illness Narrative Associated Order(s): Large Joint Arthro/Inj: bilateral knee joints Post-Procedure Diagnose(s): Chronic pain of both knees Follow Up Visit Chief Complaint Helena Lopez is a 57 year old male who presents today for follow up office visit. Patient presents with: Left Knee - Injections, Follow Up Right Knee - Follow Up, Injections History of Present Illness PAIN EVALUATION No data found in the last 1 encounters. HPI: Helena Lopez is a 57 year old male for a follow up visit 05/11 Eulfexxa injection to B/L knees. Denies pain. Is there any overall improvement in your condition? Yes, pain is getting better. C/o very mild pain every once in awhile. Any new injury, since being seen last: No REVIEW OF SYMPTOMS: Patient did not have, and does not currently have, any weight loss, malaise, fever, chills, headache, chest pain, chest pressure, palpitations, cough, shortness of breath, orthopnea, paroxsymal nocturnal dyspnea, nausea, vomiting, diarrhea, constipation, melena, hematochezia, urinary difficulties, prolonged bleeding, easily bruising, heat or cold intolerance, new onset joint pain or swelling, new onset extremity weakness or numbness, new onset auditory or visual disturbances, lightheadedness, dizziness, partial loss of consciousness or full loss of consciousness. No current outpatient medications on file. No current facility-administered medications for this visit. Physical Exam Vitals: There were no vitals taken for this visit. Psych: Pleasant, good affect and mood General Appearance: Well appearing, alert, in no acute distress, well-hydrated, well nourished.. Skin: Skin color, texture, turgor normal, no suspicious rashes or lesions. Peripheral Pulses: Normal. Neurologic: Gait normal. Reflexes normal and symmetric. Sensation grossly intact.. Lymph Nodes: No cervical lymphadenopathy, No supraclavicular lymphadenopathy, No axillary lymphadenopathy., and No inguinal lymphadenopathy.. Respiratory: No recent pulmonary infection, hemoptysis, chronic cough, or shortness of breath at rest Rheumatologic: Joint deformities: bilateral knee pain Ortho Exam Assessment and Plan Radiographs: No imaging to review. Impression: No diagnosis found. Today, in detail, through a thorough evaluation, we discussed possible etiologies of pain and our plans for further diagnostic and therapeutic interventions. We discussed strategies for decreasing pain and improving strength, stability and motion. Patient's questions were answered in detailed. Patient verbalizes understanding and agrees with the treatment plan as discussed. Discussed with patient possible options for treatment. Patient elected proceed with injection. Patient told not to submerge the injected area for 24 hours in a hot tub, or bath, injection may take 2 weeks for improvement to be noticed, follow-up in 2 -6 weeks if symptoms do not resolve. All questions answered patient agreement of plan. Apply ice Limit activities as discussed Rest Do not submerge limb in water for 24 hours Cont current meds Watch sugars/decrease carbs Call if warm/hot/red Discussed with patient that if the injection does not work after 2 to 4 weeks to come back for reevaluation. Discussed the next 3 days may feel worse before it feels better. Discussed if having continued pain to return. May get injection every 3 months Large Joint Arthro/Inj: bilateral knee joints Informed Consent Consent Obtained: Verbal [place] Protocol A moment to CARE was completed. SIGN IN Personnel directly involved with the procedure wore the appropriate PPE. Special Equipment: Yes Patient/Surrogate Stated/Verified: Date of , Relevant allergies, Intended procedure and Patient name TIME OUT Intended patient and procedure match the source document(s). Consent documented and matches the intended procedure. Relevant labs, photos, and/or imaging studies have been reviewed. Correct side/site marked and visible. Medications required for procedure verified. Fire risk assessed and interventions discussed. No implant(s) inserted. 11/15/2022 11:34 AM The procedure site was prepped in the usual sterile fashion. Site: bilateral knee joints Medications (Right): 20 mg sodium hyaluronate 10 mg/mL(mw 2.4 -3.6 million) Medications (Left): 20 mg sodium hyaluronate 10 mg/mL(mw 2.4 -3.6 million) Outcome: Tolerated well, no immediate complications Post-injection instructions were reviewed with the patient and the patient voiced understanding of these instructions. SIGN OUT All instruments, equipment, possible retained foreign bodies accounted for. Adrienne Dixon D.O., M.P.HDwaine Euflexxa #3, B/L knee LOT # [id number] EXP 06-30-2023 Maren Wright RN documented in this encounter [facility] 11-09-2022 Note HNO ID: [id number] Author: Adrienne Dixon DO Service: ? Author Type: Physician Type: Progress Notes Filed: 11/09/2022 10:09 AM Note Text: Large Joint Arthro/Inj: bilateral knee joints Informed Consent Consent Obtained: Verbal [place] Protocol A moment to CARE was completed. SIGN IN Personnel directly involved with the procedure wore the appropriate PPE. Special Equipment: Yes Patient/Surrogate Stated/Verified: Date of , Relevant allergies, Intended procedure and Patient name TIME OUT Intended patient and procedure match the source document(s). Consent documented and matches the intended procedure. Relevant labs, photos, and/or imaging studies have been reviewed. Correct side/site marked and visible. Medications required for procedure verified. Fire risk assessed and interventions discussed. No implant(s) inserted. 11/09/2022 10:06 AM The procedure site was prepped in the usual sterile fashion. Site: bilateral knee joints Medications (Right): 20 mg sodium hyaluronate 10 mg/mL(mw 2.4 -3.6 million) Medications (Left): 20 mg sodium hyaluronate 10 mg/mL(mw 2.4 -3.6 million) Outcome: Tolerated well, no immediate complications Post-injection instructions were reviewed with the patient and the patient voiced understanding of these instructions. SIGN OUT All instruments, equipment, possible retained foreign bodies accounted for. Follow Up Visit Chief Complaint Helena Lopez is a 57 year old male who presents today for follow up office visit. Patient presents with: Left Knee - Follow Up, Knee Pain, Injections Right Knee - Follow Up, Knee Pain, Injections History of Present Illness PAIN EVALUATION 11/09/2022 0953 Pain Level: 3 Pain Location: -- bilateral knee pain Description: Aching;Dull;Sore Duration Units: Years Frequency: Intermittent Intervention/Comfort measure: -- gel injections HPI: Helena Lopez is a 57 year old male for a follow up visit bilateral knee pain. Here for euflexxa 2/3. Pain history is noted as above. Denies calf pain, numbness, tingling, fever, chills or other constitutional symptoms. Is there any overall improvement in your condition? Yes, some pain Any new injury, since being seen last: No REVIEW OF SYMPTOMS: Patient did not have, and does not currently have, any weight loss, malaise, fever, chills, headache, chest pain, chest pressure, palpitations, cough, shortness of breath, orthopnea, paroxsymal nocturnal dyspnea, nausea, vomiting, diarrhea, constipation, melena, hematochezia, urinary difficulties, prolonged bleeding, easily bruising, heat or cold intolerance, new onset joint pain or swelling, new onset extremity weakness or numbness, new onset auditory or visual disturbances, lightheadedness, dizziness, partial loss of consciousness or full loss of consciousness. No current outpatient medications on file. No current facility-administered medications for this visit. Physical Exam Vitals: There were no vitals taken for this visit. Psych: Pleasant, good affect and mood General Appearance: Well appearing, alert, in no acute distress, well-hydrated, well nourished.. Skin: Skin color, texture, turgor normal, no suspicious rashes or lesions. Peripheral Pulses: Normal. Neurologic: Gait normal. Reflexes normal and symmetric. Sensation grossly intact.. Lymph Nodes: No cervical lymphadenopathy, No supraclavicular lymphadenopathy, No axillary lymphadenopathy., and No inguinal lymphadenopathy.. Respiratory: No recent pulmonary infection, hemoptysis, chronic cough, or shortness of breath at rest Rheumatologic: Joint deformities: bilateral knee pain Ortho Exam Assessment and Plan Radiographs: No imaging to review. Impression: Encounter Diagnosis ICD-10-CM 1. Chronic pain of both knees M25.561 M25.562 G89.29 2. Primary osteoarthritis of both knees M17.0 Today, in detail, through a thorough evaluation, we discussed possible etiologies of pain and our plans for further diagnostic and therapeutic interventions. We discussed strategies for decreasing pain and improving strength, stability and motion. Patient's questions were answered in detailed. Patient verbalizes understanding and agrees with the treatment plan as discussed. Discussed with patient possible options for treatment. Patient elected proceed with injection. Patient told not to submerge the injected area for 24 hours in a hot tub, or bath, injection may take 2 weeks for improvement to be noticed, follow-up in 2 -6 weeks if symptoms do not resolve. All questions answered patient agreement of plan. Apply ice Limit activities as discussed Rest Do not submerge limb in water for 24 hours Cont current meds Watch sugars/decrease carbs Call if warm/hot/red Discussed with patient that if the injection does not work after 2 to 4 weeks to come back for reevaluation. Discussed the next 3 days may feel worse before it (more content not included)... [facility] 11-09-2022 History of Present illness Narrative Associated Order(s): Large Joint Arthro/Inj: bilateral knee joints Post-Procedure Diagnose(s): Primary osteoarthritis of both knees; Chronic pain of both knees Images from the original note were not included. Large Joint Arthro/Inj: bilateral knee joints Informed Consent Consent Obtained: Verbal [place] Protocol A moment to CARE was completed. SIGN IN Personnel directly involved with the procedure wore the appropriate PPE. Special Equipment: Yes Patient/Surrogate Stated/Verified: Date of , Relevant allergies, Intended procedure and Patient name TIME OUT Intended patient and procedure match the source document(s). Consent documented and matches the intended procedure. Relevant labs, photos, and/or imaging studies have been reviewed. Correct side/site marked and visible. Medications required for procedure verified. Fire risk assessed and interventions discussed. No implant(s) inserted. 11/09/2022 10:06 AM The procedure site was prepped in the usual sterile fashion. Site: bilateral knee joints Medications (Right): 20 mg sodium hyaluronate 10 mg/mL(mw 2.4 -3.6 million) Medications (Left): 20 mg sodium hyaluronate 10 mg/mL(mw 2.4 -3.6 million) Outcome: Tolerated well, no immediate complications Post-injection instructions were reviewed with the patient and the patient voiced understanding of these instructions. SIGN OUT All instruments, equipment, possible retained foreign bodies accounted for. Follow Up Visit Chief Complaint Helena Lopez is a 57 year old male who presents today for follow up office visit. Patient presents with: Left Knee - Follow Up, Knee Pain, Injections Right Knee - Follow Up, Knee Pain, Injections History of Present Illness PAIN EVALUATION 11/09/2022 0908 Pain Level: 3 Pain Location: -- bilateral knee pain Description: Aching;Dull;Sore Duration Units: Years Frequency: Intermittent Intervention/Comfort measure: -- gel injections HPI: Helena Lopez is a 57 year old male for a follow up visit bilateral knee pain. Here for euflexxa 2. Pain history is noted as above. Denies calf pain, numbness, tingling, fever, chills or other constitutional symptoms. Is there any overall improvement in your condition? Yes, some pain Any new injury, since being seen last: No REVIEW OF SYMPTOMS: Patient did not have, and does not currently have, any weight loss, malaise, fever, chills, headache, chest pain, chest pressure, palpitations, cough, shortness of breath, orthopnea, paroxsymal nocturnal dyspnea, nausea, vomiting, diarrhea, constipation, melena, hematochezia, urinary difficulties, prolonged bleeding, easily bruising, heat or cold intolerance, new onset joint pain or swelling, new onset extremity weakness or numbness, new onset auditory or visual disturbances, lightheadedness, dizziness, partial loss of consciousness or full loss of consciousness. No current outpatient medications on file. No current facility-administered medications for this visit. Physical Exam Vitals: There were no vitals taken for this visit. Psych: Pleasant, good affect and mood General Appearance: Well appearing, alert, in no acute distress, well-hydrated, well nourished.. Skin: Skin color, texture, turgor normal, no suspicious rashes or lesions. Peripheral Pulses: Normal. Neurologic: Gait normal. Reflexes normal and symmetric. Sensation grossly intact.. Lymph Nodes: No cervical lymphadenopathy, No supraclavicular lymphadenopathy, No axillary lymphadenopathy., and No inguinal lymphadenopathy.. Respiratory: No recent pulmonary infection, hemoptysis, chronic cough, or shortness of breath at rest Rheumatologic: Joint deformities: bilateral knee pain Ortho Exam Assessment and Plan Radiographs: No imaging to review. Impression: Encounter Diagnosis ICD-10-CM 1. Chronic pain of both knees M25.561 M25.562 G89.29 2. Primary osteoarthritis of both knees M17.0 Today, in detail, through a thorough evaluation, we discussed possible etiologies of pain and our plans for further diagnostic and therapeutic interventions. We discussed strategies for decreasing pain and improving strength, stability and motion. Patient's questions were answered in detailed. Patient verbalizes understanding and agrees with the treatment plan as discussed. Discussed with patient possible options for treatment. Patient elected proceed with injection. Patient told not to submerge the injected area for 24 hours in a hot tub, or bath, injection may take 2 weeks for improvement to be noticed, follow-up in 2 -6 weeks if symptoms do not resolve. All questions answered patient agreement of plan. Apply ice Limit activities as discussed Rest Do not submerge limb in water for 24 hours Cont current meds Watch sugars/decrease carbs Call if warm/hot/red Discussed with patient that if the injection does not work after 2 to 4 weeks to come back for reevaluation. Discussed the next 3 days may feel worse before it feels better. Discussed if having continued pain to return. May get injection every 3 months Adrienne Starks.O. M.P.H. documented in this encounter [facility] 11-02-2022 Note HNO ID: [id number] Author: Adrienne Dixon DO Service: ? Author Type: Physician Type: Progress Notes Filed: 11/02/2022 2:29 PM Note Text: Large Joint Arthro/Inj: bilateral knee joints Informed Consent Consent Obtained: Verbal [place] Protocol A moment to CARE was completed. SIGN IN Personnel directly involved with the procedure wore the appropriate PPE. Special Equipment: Yes Patient/Surrogate Stated/Verified: Date of , Relevant allergies, Intended procedure and Patient name TIME OUT Intended patient and procedure match the source document(s). Consent documented and matches the intended procedure. Relevant labs, photos, and/or imaging studies have been reviewed. Correct side/site marked and visible. Medications required for procedure verified. Fire risk assessed and interventions discussed. No implant(s) inserted. 11/02/2022 2:27 PM The procedure site was prepped in the usual sterile fashion. Site: bilateral knee joints Medications (Right): 20 mg sodium hyaluronate 10 mg/mL(mw 2.4 -3.6 million) Medications (Left): 20 mg sodium hyaluronate 10 mg/mL(mw 2.4 -3.6 million) Outcome: Tolerated well, no immediate complications Post-injection instructions were reviewed with the patient and the patient voiced understanding of these instructions. SIGN OUT All instruments, equipment, possible retained foreign bodies accounted for. Follow Up Visit Chief Complaint Helena Lopez is a 57 year old male who presents today for follow up office visit. Patient presents with: Right Knee - Follow Up, Knee Pain Left Knee - Follow Up, Knee Pain History of Present Illness PAIN EVALUATION 11/02/2022 0956 Pain Level: 2 Pain Location: -- bilateral knee pain Description: Aching;Dull Duration Units: Months Frequency: Intermittent Intervention/Comfort measure: -- cortisone injection HPI: Helena Lopez is a 57 year old male for a follow up visit bilateral knee pain. Patient is here to have bilateral euflexxa injection 03/13. Had cortisone injection in july that did give some relief. Pain history is noted as above. Denies calf pain, numbness, tingling, fever, chills or other constitutional symptoms. Is there any overall improvement in your condition? Yes, pain Any new injury, since being seen last: No REVIEW OF SYMPTOMS: Patient did not have, and does not currently have, any weight loss, malaise, fever, chills, headache, chest pain, chest pressure, palpitations, cough, shortness of breath, orthopnea, paroxsymal nocturnal dyspnea, nausea, vomiting, diarrhea, constipation, melena, hematochezia, urinary difficulties, prolonged bleeding, easily bruising, heat or cold intolerance, new onset joint pain or swelling, new onset extremity weakness or numbness, new onset auditory or visual disturbances, lightheadedness, dizziness, partial loss of consciousness or full loss of consciousness. No current outpatient medications on file. No current facility-administered medications for this visit. Physical Exam Vitals: There were no vitals taken for this visit. Psych: Pleasant, good affect and mood General Appearance: Well appearing, alert, in no acute distress, well-hydrated, well nourished.. Skin: Skin color, texture, turgor normal, no suspicious rashes or lesions. Peripheral Pulses: Normal. Neurologic: Gait normal. Reflexes normal and symmetric. Sensation grossly intact.. Lymph Nodes: No cervical lymphadenopathy, No supraclavicular lymphadenopathy, No axillary lymphadenopathy., and No inguinal lymphadenopathy.. Respiratory: No recent pulmonary infection, hemoptysis, chronic cough, or shortness of breath at rest Rheumatologic: Joint deformities: bilateral knee pain Ortho Exam Assessment and Plan Radiographs: I have independently reviewed films and my findings are the same. Impression: Encounter Diagnosis ICD-10-CM 1. Chronic pain of both knees M25.561 M25.562 G89.29 2. Primary osteoarthritis of both knees M17.0 Today, in detail, through a thorough evaluation, we discussed possible etiologies of pain and our plans for further diagnostic and therapeutic interventions. We discussed strategies for decreasing pain and improving strength, stability and motion. Patient's questions were answered in detailed. Patient verbalizes understanding and agrees with the treatment plan as discussed. Adrienne Dixon D.O., M[facility] History of Present illness Narrative Associated Order(s): Large Joint Arthro/Inj: bilateral knee joints Post-Procedure Diagnose(s): Primary osteoarthritis of both knees; Chronic pain of both knees Images from the original note were not included. Large Joint Arthro/Inj: bilateral knee joints Informed Consent Consent Obtained: Verbal [place] Protocol A moment to CARE was completed. SIGN IN Personnel directly involved with the procedure wore the appropriate PPE. Special Equipment: Yes Patient/Surrogate Stated/Verified: Date of , Relevant allergies, Intended procedure and Patient name TIME OUT Intended patient and procedure match the source document(s). Consent documented and matches the intended procedure. Relevant labs, photos, and/or imaging studies have been reviewed. Correct side/site marked and visible. Medications required for procedure verified. Fire risk assessed and interventions discussed. No implant(s) inserted. 11/02/2022 2:27 PM The procedure site was prepped in the usual sterile fashion. Site: bilateral knee joints Medications (Right): 20 mg sodium hyaluronate 10 mg/mL(mw 2.4 -3.6 million) Medications (Left): 20 mg sodium hyaluronate 10 mg/mL(mw 2.4 -3.6 million) Outcome: Tolerated well, no immediate complications Post-injection instructions were reviewed with the patient and the patient voiced understanding of these instructions. SIGN OUT All instruments, equipment, possible retained foreign bodies accounted for. Follow Up Visit Chief Complaint Helena Lopez is a 57 year old male who presents today for follow up office visit. Patient presents with: Right Knee - Follow Up, Knee Pain Left Knee - Follow Up, Knee Pain History of Present Illness PAIN EVALUATION 11/02/2022 0956 Pain Level: 2 Pain Location: -- bilateral knee pain Description: Aching;Dull Duration Units: Months Frequency: Intermittent Intervention/Comfort measure: -- cortisone injection HPI: Helena Lopez is a 57 year old male for a follow up visit bilateral knee pain. Patient is here to have bilateral euflexxa injection 03/13. Had cortisone injection in july that did give some relief. Pain history is noted as above. Denies calf pain, numbness, tingling, fever, chills or other constitutional symptoms. Is there any overall improvement in your condition? Yes, pain Any new injury, since being seen last: No REVIEW OF SYMPTOMS: Patient did not have, and does not currently have, any weight loss, malaise, fever, chills, headache, chest pain, chest pressure, palpitations, cough, shortness of breath, orthopnea, paroxsymal nocturnal dyspnea, nausea, vomiting, diarrhea, constipation, melena, hematochezia, urinary difficulties, prolonged bleeding, easily bruising, heat or cold intolerance, new onset joint pain or swelling, new onset extremity weakness or numbness, new onset auditory or visual disturbances, lightheadedness, dizziness, partial loss of consciousness or full loss of consciousness. No current outpatient medications on file. No current facility-administered medications for this visit. Physical Exam Vitals: There were no vitals taken for this visit. Psych: Pleasant, good affect and mood General Appearance: Well appearing, alert, in no acute distress, well-hydrated, well nourished.. Skin: Skin color, texture, turgor normal, no suspicious rashes or lesions. Peripheral Pulses: Normal. Neurologic: Gait normal. Reflexes normal and symmetric. Sensation grossly intact.. Lymph Nodes: No cervical lymphadenopathy, No supraclavicular lymphadenopathy, No axillary lymphadenopathy., and No inguinal lymphadenopathy.. Respiratory: No recent pulmonary infection, hemoptysis, chronic cough, or shortness of breath at rest Rheumatologic: Joint deformities: bilateral knee pain Ortho Exam Assessment and Plan Radiographs: I have independently reviewed films and my findings are the same. Impression: Encounter Diagnosis ICD-10-CM 1. Chronic pain of both knees M25.561 M25.562 G89.29 2. Primary osteoarthritis of both knees M17.0 Today, in detail, through a thorough evaluation, we discussed possible etiologies of pain and our plans for further diagnostic and therapeutic interventions. We discussed strategies for decreasing pain and improving strength, stability and motion. Patient's questions were answered in detailed. Patient verbalizes understanding and agrees with the treatment plan as discussed. Adrienne WiseP.H. documented in this encounter [facility] 07-27-2022 Note HNO ID: [id number] Author: Adrienne Dixon DO Service: ? Author Type: Physician Type: Progress Notes Filed: 07/27/2022 1:48 PM Note Text: Reason for Visit/Chief Complaint Helena Lopez is a 57 year old male who presents today for a new evaluation of following complaint: Patient presents with: Left Knee - New, Knee Pain Right Knee - New, Knee Pain History of Present Illness: PAIN EVALUATION 07/27/2022 0954 Pain Level: 4 Pain Location: -- bilateral knee pain Description: Aching;Dull;Sore Duration Units: Years Frequency: Intermittent Intervention/Comfort measure: -- CSI in the past HPI: Helena Lopez is a 57 year old male presenting today with bilateral knee pain. Patient has had knee pain for years. No injury to knees. Continues to be pretty active. Pain history is noted as above. Denies calf pain, numbness, tingling, fever, chills or other constitutional symptoms. Previous Treatments: Ice: No Heat: No Brace: No NSAIDs: Yes, PRn Injections: Yes, more than 3 years ago, gave about 6 mo of relief Surgeries: No Physical Therapy: No Review of Systems: Patient did not have, and does not currently have, any weight loss, malaise, fever, chills, headache, chest pain, chest pressure, palpitations, cough, shortness of breath, orthopnea, paroxsymal nocturnal dyspnea, nausea, vomiting, diarrhea, constipation, melena, hematochezia, urinary difficulties, prolonged bleeding, easily bruising, heat or cold intolerance, new onset joint pain or swelling, new onset extremity weakness or numbness, new onset auditory or visual disturbances, lightheadedness, dizziness, partial loss of consciousness or full loss of consciousness. No current outpatient medications on file prior to visit. No current facility-administered medications on file prior to visit. ALLERGIES No Known Allergies Physical Exam: Vitals: There were no vitals taken for this visit. Psych: Pleasant, good affect and mood General Appearance: Well appearing, alert, in no acute distress, well-hydrated, well nourished.. Skin: Skin color, texture, turgor normal, no suspicious rashes or lesions. Peripheral Pulses: Normal. Neurologic: Gait normal. Reflexes normal and symmetric. Sensation grossly intact.. Lymph Nodes: No cervical lymphadenopathy, No supraclavicular lymphadenopathy, No axillary lymphadenopathy., and No inguinal lymphadenopathy.. Respiratory: No recent pulmonary infection, hemoptysis, chronic cough, or shortness of breath at rest Rheumatologic: Joint deformities: bilateral knee pain Right Knee Exam Muscle Strength The patient has normal right knee strength. Tenderness The patient is experiencing tenderness in the medial joint line. Range of Motion Extension: normal Flexion: normal Tests Ras: Medial - positive Alex: Anterior - negative Posterior - negative Drawer: Anterior - negative Posterior - negative Other Erythema: absent Sensation: normal Pulse: present Swelling: none Left Knee Exam Muscle Strength The patient has normal left knee strength. Tenderness The patient is experiencing tenderness in the medial joint line. Range of Motion Extension: normal Flexion: normal Tests Ras: Medial - positive Alex: Anterior - negative Posterior - negative Drawer: Anterior - negative Posterior - negative Other Erythema: absent Sensation: normal Pulse: present Swelling: none Comments: Neg homans bilaterally Large Joint Arthro/Inj: bilateral knee joints Informed Consent Consent Obtained: Verbal [place] Protocol A moment to CARE was completed. SIGN IN Personnel directly involved with the procedure wore the appropriate PPE. Special Equipment: N/A Patient/Surrogate Stated/Verified: Patient name, Date of , Relevant allergies and Intended procedure TIME OUT Intended patient and procedure match the source document(s). Consent documented and matches the intended procedure. Relevant labs, photos, and/or imaging studies have been reviewed. No correct side/site applicable for marking and visibility. Medications required for procedure verified. Fire risk assessed and interventions discussed. No implant(s) inserted. 07/27/2022 1:46 PM The procedure site was prepped in the usual sterile fashion. Site: bilateral knee joints Medications (Right): 80 mg triamcinolone acetonide 40 mg/mL Medications (Left): 80 mg triamcinolone acetonide 40 mg/mL Anesthetics (Right): 8 mL BUPivacaine (PF) 0.5 % (5 mg/mL) Anesthetics (Left): 8 mL BUPivacaine (PF) 0.5 % (5 mg/mL) Outcome: Tolerated well, no immediate complications Post-injection instructions were reviewed with the patient and the patient voiced understanding of these instructions. SIGN OUT All instruments, equipment, possible retained foreign bodies accounted for. Imaging: Last XR Knee - Impression Only XR KNEE GENERAL 4V AP BOTH/PA BOTH/LAT/MERC BILATERAL Ex (more content not included)... [facility] 09-25-2021 History of Present illness Narrative Nontoxic-appearing male presents urgent care chief complaint chest pain and COVID exposure. Patient states was exposed to COVID-19 over the weekend. States he has been experiencing intermittent chest pain as well. Describes it as pressure/burning sensation. Initially he thought he had heartburn but has developed chest pressure. States he has had episodes of sweating with this. Concerned about coronary cardiac causes. Strong family history of cardiac disease. With patient's presenting symptoms I recommended patient be seen in ED for further evaluation care. Patient verbalized understanding agrees with plan of care. Rick Hawthorne APRN.PASCUAL documented in this encounter [facility] Chronic pain of both knees- Primary Primary osteoarthritis of both knees Primary localized osteoarthrosis, lower leg [facility] Diagnosis Chronic pain of both knees- Primary Primary osteoarthritis of both knees Primary localized osteoarthrosis, lower leg [facility] Diagnosis Chronic pain of both knees- Primary [facility] Diagnosis Dizzy- Primary Dizziness and giddiness Left arm pain Pain in limb documented in this encounter [facility] Medications Administered Section Inactive Administered Medications - up to 3 most recent administrations Medication Order MAR Action Action Date Dose Rate Site sodium hyaluronate 20 mg injection (EUFLEXXA) 20 mg, Injection - FOR ORTHO USE ONLY, ONE TIME INJECTION, 1 dose, Starting on Sat11/02/22 at 1427, Until Sat11/02/22 at 1427 Given 11/02/2022 2:27 PM EDT 20 mg Knee, Left sodium hyaluronate 20 mg injection (EUFLEXXA) 20 mg, Injection - FOR ORTHO USE ONLY, ONE TIME INJECTION, 1 dose, Starting on Sat11/02/22 at 1427, Until Sat11/02/22 at 1427 Given 11/02/2022 2:27 PM EDT 20 mg Knee, Right Inactive Administered Medications - up to 3 most recent administrations Medication Order MAR Action Action Date Dose Rate Site sodium hyaluronate 20 mg injection (EUFLEXXA) 20 mg, Injection - FOR ORTHO USE ONLY, ONE TIME INJECTION, 1 dose, Starting on Sat11/09/22 at 1006, Until Sat11/09/22 at 1006 Given 11/09/2022 10:06 AM EDT 20 mg Knee, Left sodium hyaluronate 20 mg injection (EUFLEXXA) 20 mg, Injection - FOR ORTHO USE ONLY, ONE TIME INJECTION, 1 dose, Starting on Sat11/09/22 at 1006, Until Sat11/09/22 at 1006 Given 11/09/2022 10:06 AM EDT 20 mg Knee, Right Inactive Administered Medications - up to 3 most recent administrations Medication Order MAR Action Action Date Dose Rate Site sodium hyaluronate 20 mg injection (EUFLEXXA) 20 mg, Injection - FOR ORTHO USE ONLY, ONE TIME INJECTION, 1 dose, Starting on Kelsey 11/15/22 at 1134, Until [place] 11/15/22 at 1134 Given 11/15/2022 11:34 AM EDT 20 mg Knee, Left sodium hyaluronate 20 mg injection (EUFLEXXA) 20 mg, Injection - FOR ORTHO USE ONLY, ONE TIME INJECTION, 1 dose, Starting on [place] 11/15/22 at 1134, Until [place] 11/15/22 at 1134 Given 11/15/2022 11:34 AM EDT 20 mg Knee, Right Summary Purpose Family History No Family History Records Found Advance Directives No Advanced Directives Records Found Additional Source Comments Source Comments (unrecognize d section and content) In the event this informatio n is protected by the Federal Confidentiality of Alcohol and Drug Abuse Patient Records regulations: The Federal rules restrict any use of the information to criminally investigate or prosecute any alcohol or drug abuse patient.[facility] the event this information is protected by the Federal Confidentiality of Alcohol and Drug Abuse Patient Records regulations: The Federal rules restrict any use of the information to criminally investigate or prosecute any alcohol or drug abuse patient.[facility] the event this information is protected by the Federal Confidentiality of Alcohol and Drug Abuse Patient Records regulations: The Federal rules restrict any use of the information to criminally investigate or prosecute any alcohol or drug abuse patient.[facility] the event this information is protected by the Federal Confidentiality of Alcohol and Drug Abuse Patient Records regulations: The Federal rules restrict any use of the information to criminally investigate or prosecute any alcohol or drug abuse patient.[facility] the event this information is protected by the Federal Confidentiality of Alcohol and Drug Abuse Patient Records regulations: The Federal rules restrict any use of the information to criminally investigate or prosecute any alcohol or drug abuse patient.[facility] Care Teams (unrecognized sec tion and content) Kiln Remover Relationship Specialty Start Date End Date Zachary Bond [address] [place] [address] PCP - General Family Medicine 09/25/21 Kiln Remover Relationship Specialty Start Date End Date Zachary Bond DO [address] [place], [place] [address] PCP - General Family Medicine 09/25/21 Kiln Remover Relationship Specialty Start Date End Date Zachary Bond DO [address] [place], [place] [address] PCP - General Family Medicine 09/25/21 Kiln Remover Relationship Specialty Start Date End Date Zachary Bond DO [address] [place], [place] [address] PCP - General Family Medicine 09/25/21 Reason for Visit (unrecogniz ed section and content) Specialty Diagnoses / Procedures Referred By Contgiuseppe t Referred To Contact ORTHOPAEDIC SURGERY Diagnoses Bilateral primary osteoarthritis of knee Procedures EUFLEXXA INJ PER DOSE EUFLEXXA OR PAYOR PREFERRED Adrienne Dixon [address] [address] [place] [address] [address] Referral ID Status Reason Start Date Expiration Date V isits Requested Visits Authorized [id number] Authorized 08/16/2022 11/16/2022 6 6 Reason Comments Follow Up Knee Pain Injections Reason Comments Follow Up Knee Pain (unrecognized sect ion and content) No Status Records Found INFORMATION SOURCE (unrecogn ized section and content) FOR RECORDS PERTAINING TO PATIENTS WHO ARE OR HAVE BEEN ENROLLED IN A CHEMICAL DEPENDENCY/SUBSTANCEABUSE PROGRAM, SOME INFORMATION MAY BE OMITTED. This clinical summary was aggregated from multiple sources. Caution should be exercised in using it in the provision of clinical care. This summary normalizes information from multiple sources, and as a consequence, information in this document may materially change the coding, format and clinical context of patient data. In addition, data may be omitted in some cases. CLINICAL DECISIONS SHOULD BE BASED ON THE PRIMARY CLINICAL RECORDS. [facility]. provides no warranty or guarantee of the accuracy or completeness of information in this document.
[2023-05-06 13:07] LABS: Cholesterol 158 mg/dL (200); High Density Lipoprotein 47 mg/dL; PSA,Total - Annual Screen 0.82 ng/mL (0.00-4.00); Triglycerides 68 mg/dL; Very Low Density Lipoprotein 14 mg/dL (5-40)
== END | disposition home or self-care (01) ==
LOC: BFHLAB 10:05
PROVIDERS: PCP Family Medicine; Visit Provider Family Medicine
DX: Z00.00 Encounter for general adult medical examination without abnormal findings (principal); M10.9 Gout, unspecified; Z12.5 Encounter for screening for malignant neoplasm of prostate
CPT/HCPCS: 36415; 80061; 84153; 84550; G0103

== ENCOUNTER → 2024-05-07 | Outpatient (CLI) | payer OTHER, SELFPAY ==
[2024-05-07 12:28] LABS: Absolute Lymphocyte Count 1.28 X10^3/uL (0.83-4.51); Absolute Neutrophil Count 3.3 X10^3/uL (2.0-7.7); Basophil# 0.06 X10^3/uL; Basophil% 1.1 % (0-1); Eosinophil# 0.21 X10^3/uL; Eosinophils% 3.8 % (0-5); Hematocrit 46.6 % (40-54); Hemoglobin 15.7 g/dL (13.0-16.5); Lymphocyte # 1.28 X10^3/ul (0.83-4.51); Lymphocyte % 23.4 % (19-41); Mean Corp Hgb Conc 33.7 g/dL (32-36); Mean Corpuscular Hgb 30.9 pg (27.0-32.0); Mean Corpuscular Volume 91.7 fL (80-94); Mean Platelet Vol. 10.2 fl (6.2-12.0); Monocyte# 0.65 X10^3/uL; Monocyte% 11.9 % (0-10); NRBC Flagged by Analyzer 0 % (0-5); Neutrophil # 3.26 X10^3/uL (2.7-7.7); Neutrophil % 59.4 % (47-70); Platelet Count 272 K/mm3 (150-450); RBC Distribution Width CV 11.9 % (11.6-14.6); Red Blood Count 5.08 M/mm3 (4.6-6.2); White Blood Count 5.5 K/mm3 (4.4-11.0)
[2024-05-07 15:56] LABS: ALB/GLOB Ratio 1.5 RATIO (0.9-2.4); AST(SGOT) 23 U/L (<=37); Alanine Aminotransfer ALT/SGPT 27 U/L (<=46); Alkaline Phosphatase 47 U/L (40-129); Anion Gap 14 (5-15); BUN 14 mg/dL (4-19); BUN/Creat Ratio 12.3 RATIO (10-20); Calcium 9.4 mg/dL (7.6-11.0); Carbon Dioxide 21.1 mmol/L (22.0-29.0); Chloride 105 mmol/L (96-108); Creatinine, Serum 1.1 mg/dL (0.8-1.3); EST Glomerular Filtration Rate 75 (>60); Globulin 2.8 g/dL (2.2-4.2); Glucose 94 mg/dL (70-99); Potassium 4.1 mmol/L (3.3-5.1); Protein, Total 6.8 g/dL (5.9-8.4); Sodium Level 140 mmol/L (133-145); Total Bilirubin 0.54 mg/dL (0.00-1.30)
[2024-05-07 19:03] LABS: Cholesterol 157 mg/dL (<=200); High Density Lipoprotein 40 mg/dL; Low Density Lipoprotein Calc. 101 mg/dL; Triglycerides 80 mg/dL; Very Low Density Lipoprotein 16 mg/dL (5-40); cholesterol:hdl ratio screen 3.93
[2024-05-08 23:42] LABS: Uric Acid 7.6 mg/dL (3.5-7.2)
[2024-05-14 14:08] LABS: Testosterone Free 7.1 pg/mL (7.2-24.0)
== END | disposition home or self-care (01) ==
PROVIDERS: PCP Family Medicine; Referring Provider Family Medicine; Visit Provider Family Medicine
DX: Z00.00 Encounter for general adult medical examination without abnormal findings (principal); M10.9 Gout, unspecified; R53.83 Other fatigue
CPT/HCPCS: 36415; 80053; 80061; 84153; 84402; 84550; 85025; G0103

== ENCOUNTER 2024-09-01 08:07 | Day surgery (SDC) | payer OTHER, SELFPAY ==
--- NOTE | 2024-08-27 15:10 | PAT.ANESEVAL ---
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 When Was Last Pacemaker Check QUESTION #4 FULL TEXT: You/Your Family Experience fever (hyperthermia) with Anesthesia Last Oral Intake Last Oral intake: Last Oral Intake NPO since Meds taken in AM with sips of water? 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 Female No 08/27/24 14:58 HX of Motion Sickness No 08/27/24 14:58 HX of N/V After Surgery No 08/27/24 14:58 Non-Smoker Yes 08/27/24 14:58 Duration of Surgery greater No 08/27/24 14:58 than 60 minutes Number of Risk Factors 1 08/27/24 14:58 PONV Score Low Risk 08/27/24 14:58 Height & Weight Height & Weight: Anesthesia: Height & Weight Height 5 ft 10 in 11/25/22 11:57 Respiratory Assessment Respiratory Assessment - energy derivatives trader: Respiratory Tract Infection Hx - energy derivatives trader Hx Respiratory Tract Infection No 08/27/24 14:58 STOP Sleep Apnea STOP Sleep Apnea - energy derivatives trader: STOP Sleep Apnea - energy derivatives trader Hx Hypertension No 08/27/24 14:58 Hx Sleep Apnea No 08/27/24 14:58 CPAP BIPAP Do you snore loudly (louder No 08/27/24 14:58 than talking or can be heard Do you often feel tired/ No 08/27/24 14:58 fatigued/ sleepy during daytime? Has anyone observed you stop No 08/27/24 14:58 breathing during sleep? STOP Results Negative 08/27/24 14:58 QUESTION #5 FULL TEXT : Do you snore loudly (louder than talking or can be heard through closed doors)? 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 Specify any problems Hx of Preganancy in last 3 N/A 08/27/24 14:58 Months Nurse Filling Out Transfusion NBUCHER 08/27/24 14:58 & Questions: Date: 08/27/24 08/27/24 14:58 Time: 14:58 08/27/24 14:58 Patient unable to answer at this time (ie. confused, unrespo /Reproduction History /Reproductive History - energy derivatives trader: /Reproductive Hx- energy derivatives trader Hx Now No 08/27/24 14:58 Gestational Age (in weeks): EDC: Hx Hx Para Hx Section SAB No 08/27/24 14:58 PFSH Medical History (Updated 08/27/24 @ 15:02 by Desi Cabezas) Arthritis Non-smoker Normal stress echocardiogram Screening for intestinal cancer Home Medications ?Medication ?Instructions ?Recorded ?Last Taken ?Type sildenafil (pulm.hypertension) 20 40 - 100 mg PO DAILY PRN PULMONARY 08/27/24 Unknown History mg tablet HTN Allergy/AdvReac Type Severity Reaction Status Date / Time naproxen AdvReac Hives Verified 08/27/24 14:56 Family History Mother Breast cancer Father CAD (coronary artery disease) Surgical History History of colonoscopy (~04/2018) [place] teeth extracted Social History Smoking Status: Never smoker alcohol intake: current details: <1 per day Audit: Pertinent Findings Pertinent Findings EKG Perinent findings: 11/2022: NSR Stress test pertinent findings: Stress echo 10/2021: EF 60%, all segments normal Recommendation Anesthesia Recommendation Anesthesia recommendation: OPTIMIZED for anesthesia
[2024-09-01] VITALS (7 sets, daily range): BP systolic 94–137; BP diastolic 68–79; PULSE 54–78; RESP 16; TEMP 36.6–36.9; O2SAT 95–98; BMI 29.1
[2024-09-01] MEDS: Lactated Ringers 1,000 ML 15 ML IV (08:36)
--- OUTSIDE RECORDS SUMMARY | 2024-09-01 08:43 | XMS RPT_ITS | CCD ---
Author Organization [facility] Care Team Providers Care Travel Consultant Name Role Phone Adrienne Bender Unavailable [phone] Jessie Armas Unavailable Adrienne Bender Unavailable Zachary Bond DO A Primary Care Provider Dr. Zachary Bond Primary Care Provider [phone] Dr[address] Elmer Cox Attending Provider Zachary Bond DO A Primary Care Provider ZACHARY BOND A Referring Unavailable ZACHARY BOND A Primary Care Unavailable ADRIENNE BENDER Attending Unavailab le ZACHARY BOND A Primary Care Unavailable CHICADRIENNE MENDOZA Attending Unavailab le ZACHARY BOND A Primary Care Unavailable ADRIENNE BENDER Referring Unavailab le ADRIENNE BENDER Attending Unavailab le VARUNZACHARY DE LA [place]OR[place] A Primary Care Unavailable CHICORELADRIENNE ORTEGA Referring Unavailab le VARUNZACHARY DE LA TORRE A Primary Care Unavailable CHICORELADRIENNE ORTEGA Referring Unavailab le CHICORELADRIENNE ORTEGA Attending Unavailab le Zachary Bond DO A Primary Care Provider Dr. Zachary Bond DO Primary Care Provider Dr. Zachary Bond DO Attending Provider Dr. Zachary Bond DO Referring Provider Zachary Bond Referring Unavailable Zachary Bond Attending Unavailable Zachary Bond Primary Care Unavailable Friend, Jey Attending Unavailable Zachary Bond Primary Care Unavailable Zachary Bond Referring Unavailable Tam Kidd Attending Unavailable Zachary Bond Primary Care Unavailable Zachary Bond Attending Unavailable Zachary Bond Primary Care Unavailable Zachary Bond Referring Unavailable Allergies Allergy Classification Reported Allergen(s) Allergy Type Date of Onset Reaction(s) Facility (4 sources) Naproxen Drug Allergy 03-17-2021 [facility] (1 source) Naproxen Drug Allergy 08-27-2024 [facility] Repository Medications Completed/Discontinued Medications Medication Drug Class(es) Dates Sig (Normalized) Sig (Original) 2 ml sodium hyaluronate 10 mg/ml prefilled syringe (6 sources) Start: 11-15-2022 End: 11-15-2022 sodium hyaluronate 20 mg injection (EUFLEXXA) Start: 11-09-2022 End: 11-09-2022 sodium hyaluronate 20 mg inj ection (EUFLEXXA) Start: 11-02-2022 End: 11-02-2022 sodium hyaluronate 20 mg inj ection (EUFLEXXA) Drug Treatment Unknown - unk nown (1 source) No information a vailable. Problems Active Problems Problem Classification Problem Date Documented Date Episodic/Chronic Conditions associated with dizziness or vertigo (3 sources) Dizziness; Translations: [Dizziness and giddiness] 11-25-2022 Episodic Gout and other crystal arthropathies (1 source) Gout, unspecified; Translations: [Gout, unspecified] Onset: 10-29-2023 Chronic Joint disorders and dislocations; trauma-related (10 sources) Derangement of medial meniscus; Translations: [Loose body in knee, left knee] Onset: 08-14-2016 08-14-2016 Chronic Osteoarthritis (4 sources) Osteoarthritis of knee; Translations: [Primary gonarthrosis, bilateral] Onset: 09-06-2016 09-06-2016 Chronic Other connective tissue disease (1 source) Pain in left arm; Translations: [Pain in left arm] 11-25-2022 Episodic Other nervous system disorders (2 sources) Paresthesia; Translations: [Paresthesia of skin] 12-03-2022 Episodic Other non-traumatic joint disorders (4 sources) Pain in right knee; Translations: [Pain in joint, lower leg] 11-02-2022 Episodic Other nutritional; endocrine; and metabolic disorders (4 sources) Body mass index 30+ - obesity; Translations: [Body mass index (BMI) 30.0-30.9, adult] 03-17-2021 Chronic Other screening for suspected conditions (not mental disorders or infectious disease) (4 sources) Patient encounter status; Translations: [Encounter for screening for malignant neoplasm of intestinal tract, unspecified] 05-06-2018 Episodic Residual codes; unclassified (1 source) Procedure not done; Translations: [Procedure and treatment not carried out, unspecified reason] Episodic Viral infection (4 sources) Disease caused by 2019-nCoV; Translations: [COVID-19] 03-17-2021 Episodic Past or Other Problems Problem Classification Problem Date Documented Date Episodic/Chronic Malaise and fatigue (1 source) Other fatigue; Translations: [Other fatigue] Onset: 10-29-2023 Episodic Other connective tissue disease (5 sources) Pes anserinus bursitis; Translations: [Other bursitis of knee, left knee] Onset: 08-14-2016 08-14-2016 Episodic Other non-traumatic joint disorders (5 sources) Knee pain; Translations: [Pain in left knee] Onset: 08-14-2016 08-14-2016 Episodic Residual codes; unclassified (4 sources) History of colonoscopy; Translations: [Other specified postprocedural states] Onset: 03-11-2018 05-06-2018 Episodic Superficial injury; contusion (2 sources) Other injury of unspecified body region; Translations: [Other injury of unspecified body region] Onset: 09-06-2016 09-06-2016 Episodic Results Test Name Value Interpretation Reference Range Facility MR/PATJOSEon 08-27-2024 MR/PAT.RUTH [facility] Medical Records Department [address] [place] [address] PAT - Anesthesia 08/27/24 1510 MR#: [id number] Acct: [id number] Name: HELENA SCHAFFER Rep #: [id number] : 1965 59 From: Tin Argueta MD PCP: Dr. Zachary Bond, DO Status:PRE SD Y Race: C Location: EN Pre-Assessment Diagnosis/Proposed Procedure Planned Operative Procedure(s): CSCOPE Anesthesia History Anesthesia History - associate faculty: Anesthesia History - associate faculty Hx Hospitalization No 08/27/24 14:58 Any Problems With Anesthesia No 08/27/24 14:58 Cholinesterase deficiency No 08/27/24 14:58 You/Your Family Experience No 08/27/24 14:58 fever (hyperthermia) with Relationship Recent Exposure to Contagious No 05/02/18 08:33 Disease Does patient have nerve No 08/27/24 14:58 stimulator Patient instructed to have device shut off --Does patient have Pacemaker or ICD? When Was Last Pacemaker Check QUESTION #4 FULL TEXT: You/Your Family Experience fever (hyperthermia) with Anesthesia Last Oral Intake Last Oral intake: Last Oral Intake NPO since Meds taken in AM with sips of water? Meds patient instructed to take am of surgery PONV PONV - associate faculty: PONV - associate faculty Female No 08/27/24 14:58 HX of Motion Sickness No 08/27/24 14:58 HX of N/V After Surgery No 08/27/24 14:58 Non-Smoker Yes 08/27/24 14:58 Duration of Surgery greater No 08/27/24 14:58 than 60 minutes Number of Risk Factors 1 08/27/24 14:58 PONV Score Low Risk 08/27/24 14:58 Height Weight Height Weight: Anesthesia: Height Weight Height 5 ft 10 in 11/25/22 11:57 Respiratory Assessment Respiratory Assessment - associate faculty: Respiratory Tract Infection Hx - associate faculty Hx Respiratory Tract Infection No 08/27/24 14:58 STOP Sleep Apnea STOP Sleep Apnea - associate faculty: STOP Sleep Apnea - associate faculty Hx Hypertension No 08/27/24 14:58 Hx Sleep Apnea No 08/27/24 14:58 CPAP BIPAP Do you snore loudly (louder No 08/27/24 14:58 than talking or can be heard Do you often feel tired/ No 08/27/24 14:58 fatigued/ sleepy during daytime? Has anyone observed you stop No 08/27/24 14:58 breathing during sleep? STOP Results Negative 08/27/24 14:58 QUESTION #5 FULL TEXT : Do you snore loudly (louder than talking or can be heard through closed doors)? 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 Specify any problems Hx of Preganancy in last 3 N/A 08/27/24 14:58 Months Nurse Filling Out Transfusion NBUCHER 08/27/24 14:58 Questions: Date: 08/27/24 08/27/24 14:58 Time: 14:58 08/27/24 14:58 Patient unable to answer at this time (ie. confused, unrespo /Reproduc tion History /Reproduc tive History - associate faculty: /Reproduc tive Hx- associate faculty Hx Now No 08/27/24 14:58 Gestational Age (in weeks): EDC: Hx Hx Para Hx Section SAB No 08/27/24 14:58 PFSH Medical History (Updated 08/27/24 @ 15:02 by Desi Cabezas) Arthritis Non-smoker Normal stress echocardiogram Screening for intestinal cancer Home Medications ???Medication ???Instructions ???Recorded ???Last Taken ???Type sildenafil (pulm.hypertension ) 20 40 - 100 mg PO DAILY PRN PULMONAR Y 08/27/24 Unknown History mg tablet HTN Allergy/AdvReac Type Severity Reaction Status Date / Time naproxen AdvReac Hives Verified 08/27/24 14:56 Family History Mother Breast cancer Father CAD (coronary artery disease) Surgical History History of colonoscopy ( 04/2018) [place] teeth extracted Social History Smoking Status: Never smoker alcohol intake: current details: <1 per day Audit: Pertinent Findings Pertinent Findings EKG Perinent findings: 11/2022: NSR Stress test pertinent finding (more content not included)... Normal [facility] Testosterone Freeon 05-15-19 25 TESTOSTER FREE 7.1 pg/mL Abnormal 7.2-24.0 [facility] Comment on above: Result Comment: Perf ormed at: - [facility] [id number] [employer] [place]: Sindi Kingsley MD, Phone: [phone] Performed By: #### L 3400.4800, L500.4100, L500.4050, L501.9910, L100.0100 #### [facility] Laboratory [address] [place], [place], [id number] Uric Acidon 05-08-2024 URIC 7.6 mg/dL High 3.5-7.2 [facility] Comment on above: Result Comment: The drugs N-Acetylcysteine and Metamizole may falsely depress this assay. Performed By: #### L 500.4100, L500.4050 #### [facility] Laboratory [address] [place], [place], [address] Absolute neutrophil countOrd ered By: Zachary Bond on 05-07-2024 Neutrophils (Bld) [#/Vol] 3.3 10*3/uL 2.0-7.7 [facility] BUN/creatinine ratioOrdered By: Zachary Bnod on 05-07-2024 Urea nitrogen/Creatinine [Mass ratio] 12.3 mg/mg 10-20 [facility] Basophil percentageOrdered B y: Zachary Bond on 05-07-2024 Basophils/100 WBC (Bld) 1.1 % High 0-1 [facility] Bilirubin, totalOrdered By: Zachary Bond on 05-07-2024 Bilirubin [Mass/Vol] 0.54 mg/dL 0.00-1.30 [facility] CBC W/Diff, Automatedon 04-12 Absolute Lymph 1.28 X10 3/uL Normal 0.83-4.51 [facility] Comment on above: Performed By: #### L 3400.4800, L500.4100, L500.4050, L501.9910, L100.0100 #### [facility] Laboratory [address] [place], [address] Absolute Neut 3.3 X10 3/uL Normal 2.0-7.7 [facility] Comment on above: Performed By: #### L 3400.4800, L500.4100, L500.4050, L501.9910, L100.0100 #### [facility] Laboratory [address] [place], [address] Basophils/100 WBC (Bld) 1.1 % High 0-1 [facility] Comment on above: Performed By: #### L 3400.4800, L500.4100, L500.4050, L501.9910, L100.0100 #### [facility] Laboratory [address] [place], [address] Eosinophils/100 WBC (Bld) 3.8 % Normal 0-5 [facility] Comment on above: Performed By: #### L 3400.4800, L500.4100, L500.4050, L501.9910, L100.0100 #### [facility] Laboratory [address] [place], [address] Erythrocyte distribution width (RBC) [Ratio] 11.9 % Normal 11.6-14.6 [facility] Comment on above: Performed By: #### L 3400.4800, L500.4100, L500.4050, L501.9910, L100.0100 #### [facility] Laboratory [address] [place], [address] Hematocrit (Bld) [Volume fraction] 46.6 % Normal 40-54 [facility] Comment on above: Performed By: #### L 3400.4800, L500.4100, L500.4050, L501.9910, L100.0100 #### [facility] Laboratory [address] [place], [address] Hemoglobin (Bld) [Mass/Vol] 15.7 g/dL Normal 13.0-16.5 [facility] Comment on above: Performed By: #### L 3400.4800, L500.4100, L500.4050, L501.9910, L100.0100 #### [facility] Laboratory [address] [place], [address] IG% 0.400 Normal 0.0-0.9 [facility] Comment on above: Result Comment: IG% - Immature Granulocytes (promyelocytes, myelocytes and metamyelocytes) > 1% indicates that a LEFT SHIFT is Present. Performed By: #### L 3400.4800, L500.4100, L500.4050, L501.9910, L100.0100 #### [facility] Laboratory [address] [place], [address] Lymphocytes/100 WBC (Bld) 23.4 % Normal 19-41 [facility] Comment on above: Performed By: #### L 3400.4800, L500.4100, L500.4050, L501.9910, L100.0100 #### [facility] Laboratory [address] [place], [address] MCH (RBC) [Entitic mass] 30.9 pg Normal 27.0-32.0 [facility] Comment on above: Performed By: #### L 3400.4800, L500.4100, L500.4050, L501.9910, L100.0100 #### [facility] Laboratory [address] [place], [address] MCHC (RBC) [Mass/Vol] 33.7 g/dL Normal 32-36 [facility] Comment on above: Performed By: #### L 3400.4800, L500.4100, L500.4050, L501.9910, L100.0100 #### [facility] Laboratory [address] [place], [address] MCV (RBC) [Entitic vol] 91.7 fL Normal 80-94 [facility] Comment on above: Performed By: #### L 3400.4800, L500.4100, L500.4050, L501.9910, L100.0100 #### [facility] Laboratory [address] [place], [address] Monocytes/100 WBC (Bld) 11.9 % High 0-10 [facility] Comment on above: Performed By: #### L 3400.4800, L500.4100, L500.4050, L501.9910, L100.0100 #### [facility] Laboratory [address] [place], [address] Neutrophils/100 WBC (Bld) 59.4 % Normal 47-70 [facility] Comment on above: Performed By: #### L 3400.4800, L500.4100, L500.4050, L501.9910, L100.0100 #### [facility] Laboratory [address] [place], [address] Nucleated RBC (Bld) [#/Vol] 0 10*3/uL Normal 0-5 [facility] Comment on above: Performed By: #### L 3400.4800, L500.4100, L500.4050, L501.9910, L100.0100 #### [facility] Laboratory [address] [place], [address] Platelet mean volume (Bld) [Entitic vol] 10.2 fL Normal 6.2-12.0 [facility] Comment on above: Performed By: #### L 3400.4800, L500.4100, L500.4050, L501.9910, L100.0100 #### [facility] Laboratory [address] [place], [address] Platelets (Bld) [#/Vol] 272 10*3/uL Normal 150-450 [facility] Comment on above: Performed By: #### L 3400.4800, L500.4100, L500.4050, L501.9910, L100.0100 #### [facility] Laboratory [address] [place], [address] RBC (Bld) [#/Vol] 5.08 10*6/uL Normal 4.6-6.2 [facility] Comment on above: Performed By: #### L 3400.4800, L500.4100, L500.4050, L501.9910, L100.0100 #### [facility] Laboratory [address] [place], [address] RDW SD 40.0 fl Normal 35.1-43.9 [facility] Comment on above: Performed By: #### L 3400.4800, L500.4100, L500.4050, L501.9910, L100.0100 #### [facility] Laboratory [address] [place], [address] WBC (Bld) [#/Vol] 5.5 10*3/uL Normal 4.4-11.0 [facility] Comment on above: Performed By: #### L 3400.4800, L500.4100, L500.4050, L501.9910, L100.0100 #### [facility] Laboratory [address] [place], [address] Calculated very low density lipoprotein (VLDL) cholesterol measurementOrdered By: Zachary Bond on 05-07-2024 VLDL Cholesterol 16 mg/dL 5-40 [facility] Carbon dioxide measurementOr dered By: Zachary Bond on 05-07-2024 CO2 [Moles/Vol] 21.1 mmol/L Low 22.0-29.0 [facility] Chloride measurementOrdered By: Zachary Bond on 05-07-2024 Chloride [Moles/Vol] 105 mmol/L 96-108 [facility] Comprehensive Metabolic Prof franca 05-07-2024 Albumin [Mass/Vol] 4.0 g/dL Normal 3.5-5.0 [facility] Comment on above: Performed By: #### L 501.1400, L500.4100, L501.9910, L500.4050 #### [facility] Laboratory [address] [place], [address] Albumin/Globulin [Mass ratio] 1.5 {ratio} Normal 0.9-2.4 [facility] Comment on above: Performed By: #### L 501.1400, L500.4100, L501.9910, L500.4050 #### [facility] Laboratory [address] [place], [address] ALK PHOS 47 U/L Normal 40-129 [facility] Comment on above: Performed By: #### L 501.1400, L500.4100, L501.9910, L500.4050 #### [facility] Laboratory [address] [place], [address] ALT [Catalytic activity/Vol] 27 U/L Normal <=46 [facility] Comment on above: Performed By: #### L 501.1400, L500.4100, L501.9910, L500.4050 #### [facility] Laboratory [address] [place], [address] Anion gap [Moles/Vol] 14 mmol/L Normal 5-15 [facility] Comment on above: Performed By: #### L 501.1400, L500.4100, L501.9910, L500.4050 #### [facility] Laboratory [address] [place], [address] AST [Catalytic activity/Vol] 23 U/L Normal <=37 [facility] Comment on above: Performed By: #### L 501.1400, L500.4100, L501.9910, L500.4050 #### [facility] Laboratory [address] [place], [address] Bilirubin [Mass/Vol] 0.54 mg/dL Normal 0.00-1.30 [facility] Comment on above: Performed By: #### L 501.1400, L500.4100, L501.9910, L500.4050 #### [facility] Laboratory [address] [place], [address] BUN/CRE 12.3 RATIO Normal 10-20 [facility] Comment on above: Performed By: #### L 501.1400, L500.4100, L501.9910, L500.4050 #### [facility] Laboratory [address] [place], [address] Calcium [Mass/Vol] 9.4 mg/dL Normal 7.6-11.0 [facility] Comment on above: Performed By: #### L 501.1400, L500.4100, L501.9910, L500.4050 #### [facility] Laboratory [address] [place], [address] Chloride [Moles/Vol] 105 mmol/L Normal 96-108 [facility] Comment on above: Performed By: #### L 501.1400, L500.4100, L501.9910, L500.4050 #### [facility] Laboratory [address] [place], [address] CO2 [Moles/Vol] 21.1 mmol/L Low 22.0-29.0 [facility] Comment on above: Performed By: #### L 501.1400, L500.4100, L501.9910, L500.4050 #### [facility] Laboratory [address] [place], [address] Creatinine [Mass/Vol] 1.1 mg/dL Normal 0.8-1.3 [facility] Comment on above: Performed By: #### L 501.1400, L500.4100, L501.9910, L500.4050 #### [facility] Laboratory [address] [place], [address] GFR/1.73 sq M.predicted among non-blacks MDRD (S/P/Bld) [Vol rate/Area] 75 mL/min/{1.73_m2} Normal >60 [facility] Comment on above: Result Comment: mL/m in/1.73m2 CKD-EPI Creatinine Equation (2020) Performed By: #### L 501.1400, L500.4100, L501.9910, L500.4050 #### [facility] Laboratory [address] [place], [address] Globulin (S) [Mass/Vol] 2.8 g/dL Normal 2.2-4.2 [facility] Comment on above: Performed By: #### L 501.1400, L500.4100, L501.9910, L500.4050 #### [facility] Laboratory [address] [place], [address] Glucose [Mass/Vol] 94 mg/dL Normal 70-99 [facility] Comment on above: Performed By: #### L 501.1400, L500.4100, L501.9910, L500.4050 #### [facility] Laboratory [address] [place], [address] Potassium [Moles/Vol] 4.1 mmol/L Normal 3.3-5.1 [facility] Comment on above: Performed By: #### L 501.1400, L500.4100, L501.9910, L500.4050 #### [facility] Laboratory [address] [place], [address] Sodium [Moles/Vol] 140 mmol/L Normal 133-145 [facility] Comment on above: Performed By: #### L 501.1400, L500.4100, L501.9910, L500.4050 #### [facility] Laboratory [address] [place], [address] T PROT 6.8 g/dL Normal 5.9-8.4 [facility] Comment on above: Performed By: #### L 501.1400, L500.4100, L501.9910, L500.4050 #### [facility] Laboratory [address] [place], [address] Urea nitrogen [Mass/Vol] 14 mg/dL Normal 4-19 [facility] Comment on above: Performed By: #### L 501.1400, L500.4100, L501.9910, L500.4050 #### [facility] Laboratory [address] [place], [address] Albumin [Mass/Vol] 4.0 g/dL Normal 3.5-5.0 [facility] Comment on above: Result Comment: mirella anna Performed By: #### L 3400.4800, L500.4100, L500.4050, L501.9910, L100.0100 #### [facility] Laboratory [address] [place], [address] Albumin/Globulin [Mass ratio] 1.5 {ratio} Normal 0.9-2.4 [facility] Comment on above: Result Comment: mirella anna Performed By: #### L 3400.4800, L500.4100, L500.4050, L501.9910, L100.0100 #### [facility] Laboratory [address] [place], [address] ALK PHOS 47 U/L Normal 40-129 [facility] Comment on above: Result Comment: mirella anna Performed By: #### L 3400.4800, L500.4100, L500.4050, L501.9910, L100.0100 #### [facility] Laboratory [address] [place], [address] ALT [Catalytic activity/Vol] 26 U/L Normal <=46 [facility] Comment on above: Result Comment: reor dered Performed By: #### L 3400.4800, L500.4100, L500.4050, L501.9910, L100.0100 #### [facility] Laboratory [address] [place], [address] Anion gap [Moles/Vol] 11 mmol/L Normal 5-15 [facility] Comment on above: Result Comment: reor dered Performed By: #### L 3400.4800, L500.4100, L500.4050, L501.9910, L100.0100 #### [facility] Laboratory [address] [place], [address] AST [Catalytic activity/Vol] 22 U/L Normal <=37 [facility] Comment on above: Result Comment: reor dered Performed By: #### L 3400.4800, L500.4100, L500.4050, L501.9910, L100.0100 #### [facility] Laboratory [address] [place], [address] Bilirubin [Mass/Vol] 0.56 mg/dL Normal 0.00-1.30 [facility] Comment on above: Result Comment: reor dered Performed By: #### L 3400.4800, L500.4100, L500.4050, L501.9910, L100.0100 #### [facility] [address] [place], [address] BUN/CRE 12.3 RATIO Normal 10-20 [facility] Comment on above: Result Comment: reor dered Performed By: #### L 3400.4800, L500.4100, L500.4050, L501.9910, L100.0100 #### [facility] [address] [place], [address] Calcium [Mass/Vol] 9.3 mg/dL Normal 7.6-11.0 [facility] Comment on above: Result Comment: reor dered Performed By: #### L 3400.4800, L500.4100, L500.4050, L501.9910, L100.0100 #### [facility] [address] [place], [address] Chloride [Moles/Vol] 106 mmol/L Normal 96-108 [facility] Comment on above: Result Comment: reor dered Performed By: #### L 3400.4800, L500.4100, L500.4050, L501.9910, L100.0100 #### [facility] [address] [place], [address] CO2 [Moles/Vol] 24.2 mmol/L Normal 22.0-29.0 [facility] Comment on above: Result Comment: reor dered Performed By: #### L 3400.4800, L500.4100, L500.4050, L501.9910, L100.0100 #### [facility] [address] [place], [address] Creatinine [Mass/Vol] 1.1 mg/dL Normal 0.8-1.3 [facility] Comment on above: Result Comment: reor dered Performed By: #### L 3400.4800, L500.4100, L500.4050, L501.9910, L100.0100 #### [facility] [address] [place], [address] GFR/1.73 sq M.predicted among non-blacks MDRD (S/P/Bld) [Vol rate/Area] 77 mL/min/{1.73_m2} Normal >60 [facility] Comment on above: Result Comment: mirella anna mL/min/1.73m2 CKD-EPI Creatinine Equation (2020) Performed By: #### L 3400.4800, L500.4100, L500.4050, L501.9910, L100.0100 #### [facility] [address] [place], [address] Globulin (S) [Mass/Vol] 2.8 g/dL Normal 2.2-4.2 [facility] Comment on above: Result Comment: reor dered Performed By: #### L 3400.4800, L500.4100, L500.4050, L501.9910, L100.0100 #### [facility] [address] [place], [address] Glucose [Mass/Vol] 95 mg/dL Normal 70-99 [facility] Comment on above: Result Comment: reor dered Performed By: #### L 3400.4800, L500.4100, L500.4050, L501.9910, L100.0100 #### [facility] [address] [place], [address] Potassium [Moles/Vol] 4.1 mmol/L Normal 3.3-5.1 [facility] Comment on above: Result Comment: reor dered Performed By: #### L 3400.4800, L500.4100, L500.4050, L501.9910, L100.0100 #### [facility] [address] [place], [address] Sodium [Moles/Vol] 141 mmol/L Normal 133-145 [facility] Comment on above: Result Comment: reor dered Performed By: #### L 3400.4800, L500.4100, L500.4050, L501.9910, L100.0100 #### [facility] [address] [place], [address] T PROT 6.8 g/dL Normal 5.9-8.4 [facility] Comment on above: Result Comment: reor dered Performed By: #### L 3400.4800, L500.4100, L500.4050, L501.9910, L100.0100 #### [facility] [address] [place], [address] Urea nitrogen [Mass/Vol] 14 mg/dL Normal 4-19 [facility] Comment on above: Result Comment: reor dered Performed By: #### L 3400.4800, L500.4100, L500.4050, L501.9910, L100.0100 #### [facility] [address] [place], [address] ALB Normal 3.5-5.0 [facility] Comment on above: Result Comment: REOR DERED Performed By: #### L 500.4100, L500.4050 #### [facility] [address] [place], [address] ALK PHOS Normal 40-129 [facility] Comment on above: Result Comment: REOR DERED Performed By: #### L 500.4100, L500.4050 #### [facility] [address] [place], [address] ALT Normal <=46 [facility] Comment on above: Result Comment: REOR DERED Performed By: #### L 500.4100, L500.4050 #### [facility] [address] [place], [address] Anion Gap Normal 5-15 [facility] Comment on above: Result Comment: REOR DERED Performed By: #### L 500.4100, L500.4050 #### [facility] [address] [place], [address] AST Normal <=37 [facility] Comment on above: Result Comment: REOR DERED Performed By: #### L 500.4100, L500.4050 #### [facility] [address] [place], [address] BUN Normal 4-19 [facility] Comment on above: Result Comment: REOR DERED Performed By: #### L 500.4100, L500.4050 #### [facility] [address] [place], [address] BUN/CRE Normal 10-20 [facility] Comment on above: Result Comment: REOR DERED Performed By: #### L 500.4100, L500.4050 #### [facility] [address] [place], [address] Calcium Normal 7.6-11.0 [facility] Comment on above: Result Comment: REOR DERED Performed By: #### L 500.4100, L500.4050 #### [facility] [address] [place], [address] Chloride Normal 96-108 [facility] Comment on above: Result Comment: REOR DERED Performed By: #### L 500.4100, L500.4050 #### [facility] [address] [place], [address] CO2 Normal 22.0-29.0 [facility] Comment on above: Result Comment: REOR DERED Performed By: #### L 500.4100, L500.4050 #### [facility] [address] [place], [address] CREAT,SERUM Normal 0.8-1.3 [facility] Comment on above: Result Comment: REOR DERED Performed By: #### L 500.4100, L500.4050 #### [facility] [address] [place], [address] eGFR Normal >60 [facility] Comment on above: Result Comment: REOR DERED Performed By: #### L 500.4100, L500.4050 #### [facility] [address] [place], [address] GLU Normal 70-99 [facility] Comment on above: Result Comment: REOR DERED Performed By: #### L 500.4100, L500.4050 #### [facility] [address] [place], [address] Potassium Normal 3.3-5.1 [facility] Comment on above: Result Comment: REOR DERED Performed By: #### L 500.4100, L500.4050 #### [facility] [address] [place], [address] Sodium Normal 133-145 [facility] Comment on above: Result Comment: REOR DERED Performed By: #### L 500.4100, L500.4050 #### [facility] [address] [place], [address] T BILI Normal 0.00-1.30 [facility] Comment on above: Result Comment: REOR DERED Performed By: #### L 500.4100, L500.4050 #### [facility] [address] [place], [address] T PROT Normal 5.9-8.4 [facility] Comment on above: Result Comment: REOR DERED Performed By: #### L 500.4100, L500.4050 #### [facility] [address] [place], [address] Eosinophil percentageOrdered By: Zachary Bond on 05-07-2024 Eosinophils/100 WBC (Bld) 3.8 % 0-5 [facility] Erythrocyte distribution wid th ratioOrdered By: Zachary Bond on 05-07-2024 Erythrocyte distribution width (RBC) [Ratio] 11.9 % 11.6-14.6 [facility] Erythrocyte distribution wid th standard deviationOrdered By: Zachary Bond on 05-07-2024 Erythrocyte distribution width (RBC) [Entitic vol] 40.0 fL 35.1-43.9 [facility] GFR/1.73 sq M.predicted brenda g non-blacks MDRD (S/P/Bld) [Vol rate/Area]Ordered By: Zachary Bond on 05-07-2024 Estimated GFR (MDRD) Non-Af Amer 75 >60 [facility] Comment on above: mL/min/1.73m2 CKD-EP I Creatinine Equation (2020) Hematocrit Auto (Bld) [Volum e fraction]Ordered By: Zachary Bond on 05-07-2024 Hematocrit (Bld) [Volume fraction] 46.6 % 40-54 [facility] Hemoglobin measurementOrdere d By: Zachary Bond on 05-07-2024 Hemoglobin (Bld) [Mass/Vol] 15.7 g/dL 13.0-16.5 [facility] Immature granulocytes/100 WB C Auto (Bld)Ordered By: Zachary Bond on 05-07-2024 Immature granulocytes/100 WBC (Bld) 0.400 % 0.0-0.9 [facility] Comment on above: IG% - Immature Granu locytes (promyelocytes, myelocytes and metamyelocytes) > 1% indicates that a LEFT SHIFT is Present. LDL calc ser/plasOrdered By: Zachary Bond on 05-07-2024 LDL Cholesterol, Calculated 101 mg/dL [facility] Comment on above: Txbcygfgjs=336-330 m g/dL & Higher Evbk=646 mg/dL or greater Laboratory - Chemistry and C hemistry - challengeOrdered By: Zachary Bond on 05-07-2024 AST [Catalytic activity/Vol] 23 U/L <38 [facility] Lipid Profileon 05-07-2024 CHOL:HDL 3.93 Normal [facility] Comment on above: Performed By: #### L 500.4100, L500.4050 #### [facility] [address] [place], [address] Cholesterol [Mass/Vol] 157 mg/dL Normal <=200 [facility] Comment on above: Result Comment: Chol esterol level, Desirable <200 mg/dL Borderline high cholesterol 200-239 mg/dL High cholesterol >=240 mg/dL Recommendations of the NCEP Adult Treatment Panel for the following risk-cutoff thresholds for the [place] population. Performed By: #### L 500.4100, L500.4050 #### [facility] [address] [place], [address] Cholesterol in HDL [Mass/Vol] 40 mg/dL Normal [facility] Comment on above: Result Comment: Elodia onal Cholesterol Education Program (NCEP) guidelines: <40 mg/dL: Low HDL-cholesterol (major risk factor for CHD) >= 60 mg/dL: High HDL-cholesterol (negative risk factor for CHD) HDL-cholesterol is affected by a number of factors, e.g. smoking, exercise, hormones, sex and age. Performed By: #### L 500.4100, L500.4050 #### [facility] [address] [place], [address] Cholesterol in LDL [Mass/Vol] 101 mg/dL Normal [facility] Comment on above: Result Comment: Bord sahklv=536-631 mg/dL Higher Hpqc=810 mg/dL or greater Performed By: #### L 500.4100, L500.4050 #### [facility] [address] [place], [address] Cholesterol in VLDL [Mass/Vol] 16 mg/dL Normal 5-40 [facility] Comment on above: Performed By: #### L 500.4100, L500.4050 #### [facility] [address] [place], [address] Triglyceride [Mass/Vol] 80 mg/dL Normal [facility] Comment on above: Result Comment: The drugs N-Acetylcysteine and Metamizole may falsely depress this assay. Normal range: <150 mg/dL Borderline High: 150-199 mg/dL High: 200-499 mg/dL Very High: >500 mg/dL Performed By: #### L 500.4100, L500.4050 #### [facility] [address] [place], [address] TRIG Normal [facility] Comment on above: Result Comment: REOR DERED The drugs N-Acetylcysteine and Metamizole may falsely depress this assay. Performed By: #### L 500.4100, L500.4050 #### [facility] [address] [place], [address] CHOL Normal <=200 [facility] Comment on above: Result Comment: REOR DERED Performed By: #### L 500.4100, L500.4050 #### [facility] [address] [place], [address] CHOL:HDL Normal [facility] Comment on above: Result Comment: REOR DERED Performed By: #### L 500.4100, L500.4050 #### [facility] [address] [place], [address] CLDL Normal [facility] Comment on above: Result Comment: REOR DERED Performed By: #### L 500.4100, L500.4050 #### [facility] [address] [place], [address] HDL Normal [facility] Comment on above: Result Comment: REOR DERED Performed By: #### L 500.4100, L500.4050 #### [facility] [address] [place], [address] TRIG Normal [facility] Comment on above: Result Comment: reor agustind The drugs N-Acetylcysteine and Metamizole may falsely depress this assay. Performed By: #### L 3400.4800, L500.4100, L500.4050, L501.9910, L100.0100 #### [facility] [address] [place], [address] VLDL Normal 5-40 [facility] Comment on above: Result Comment: REOR DERED Performed By: #### L 500.4100, L500.4050 #### [facility] [address] [place], [address] CHOL Normal <=200 [facility] Comment on above: Result Comment: reor dered Performed By: #### L 3400.4800, L500.4100, L500.4050, L501.9910, L100.0100 #### [facility] [address] [place], [address] CHOL:HDL Normal [facility] Comment on above: Result Comment: reor dered Performed By: #### L 3400.4800, L500.4100, L500.4050, L501.9910, L100.0100 #### [facility] [address] [place], [address] CLDL Normal [facility] Comment on above: Result Comment: reor dered Performed By: #### L 3400.4800, L500.4100, L500.4050, L501.9910, L100.0100 #### [facility] [address] [place], [address] HDL Normal [facility] Comment on above: Result Comment: reor dered Performed By: #### L 3400.4800, L500.4100, L500.4050, L501.9910, L100.0100 #### [facility] [address] [place], [address] VLDL Normal 5-40 [facility] Comment on above: Result Comment: reor dered Performed By: #### L 3400.4800, L500.4100, L500.4050, L501.9910, L100.0100 #### [facility] [address] [place], [address] Lymphocytes Auto (Unsp spec) [#/Vol]Ordered By: Zachary Bond on 05-07-2024 Lymphocytes (Bld) [#/Vol] 1.28 10*3/uL 0.83-4.51 [facility] Lymphocytes/100 WBC Auto (Un sp spec)Ordered By: Zachary Bond on 05-07-2024 Lymphocytes/100 WBC (Bld) 23.4 % 19-41 [facility] MCV (mean corpuscular volume ) determinationOrdered By: Zachary Bond on 05-07-2024 MCV (RBC) [Entitic vol] 91.7 fL 80-94 [facility] Mean corpuscular hemoglobin (MCH) determinationOrdered By: Zachary Bond on 05-07-2024 MCH (RBC) [Entitic mass] 30.9 pg 27.0-32.0 [facility] Mean corpuscular hemoglobin concentration (MCHC) determinationOrdered By: Zachary Bond on 05-07-2024 MCHC (RBC) [Mass/Vol] 33.7 g/dL 32-36 [facility] Mean platelet volume determi nationOrdered By: Zachary Bond on 05-07-2024 Platelet mean volume (Bld) [Entitic vol] 10.2 fL 6.2-12.0 [facility] Monocyte percentageOrdered B y: Zachary Bond on 05-07-2024 Monocytes/100 WBC (Bld) 11.9 % High 0-10 [facility] Neutrophil percentageOrdered By: Zachary Bond on 05-07-2024 Neutrophils/100 WBC (Bld) 59.4 % 47-70 [facility] Nucleated red blood cell per centageOrdered By: Zachary Bond on 05-07-2024 Nucleated RBC/100 WBC (Bld) [Ratio] 0 % 0-5 [facility] PSA, total screeningOrdered By: Zachary Bond on 05-07-2024 Prostate Specific Antigen Screen 0.60 ng/mL 0.02-4.00 [facility] Comment on above: This test was perfor med using the [employer] tPSA method. Measured values of a patient sample can vary depending on the testing procedure used. PSA values determined on patient samples by different testing procedures cannot be used interchangeably. If there is a change in PSA assays while monitoring therapy, sequential testing should be performed to confirm baseline values. PSA,Total - Annual Screenon 05-07-2024 PSA,TOT SCREEN 0.60 ng/mL Normal 0.02-4.00 [facility] Comment on above: Result Comment: This test was performed using the [employer] tPSA method. Measured values of a patient??sample can vary depending on the testing procedure used. PSA values determined on patient samples by different testing procedures cannot be used interchangeably. If there is a change in PSA assays while monitoring therapy, sequential testing should be performed to confirm baseline values. Performed By: #### L 501.1400, L500.4100, L501.9910, L500.4050 #### [facility] [address] [place], [place], [id number] PSA,TOT SCREEN 0.62 ng/mL Normal 0.02-4.00 [facility] Comment on above: Order Comment: moe ered Result Comment: mirella anna This test was performed using the [employer] tPSA method. Measured values of a patient??sample can vary depending on the testing procedure used. PSA values determined on patient samples by different testing procedures cannot be used interchangeably. If there is a change in PSA assays while monitoring therapy, sequential testing should be performed to confirm baseline values. Performed By: #### L 3400.4800, L500.4100, L500.4050, L501.9910, L100.0100 #### [facility] [address] [place], [address] Platelet countOrdered By: Mariah Bond on 05-07-2024 Platelets (Bld) [#/Vol] 272 10*3/uL 150-450 [facility] RBC Auto (Bld) [#/Vol]Ordere d By: Zachary Bond on 05-07-2024 RBC (Bld) [#/Vol] 5.08 10*6/uL 4.6-6.2 [facility] Screening total cholesterol/ high density lipoprotein (HDL) cholesterol ratioOrdered By: Zachary Bond on 05-07-2024 Cholesterol.total/Palak sterol in HDL [Mass ratio] 3.93 {ratio} [facility] Serum creatinine measurement (mass/volume)Ordered By: Zachary Bond on 05-07-2024 Creatinine [Mass/Vol] 1.1 mg/dL 0.70-1.20 [facility] Serum globulin measurementOr dered By: Zachary Bond on 05-07-2024 Globulin (S) [Mass/Vol] 2.8 g/dL 2.2-4.2 [facility] Serum glucose measurement (m ass/volume)Ordered By: Zachary Bond on 05-07-2024 Glucose [Mass/Vol] 94 mg/dL 70-99 [facility] Serum or plasma alanine oakley otransferase (ALT) measurementOrdered By: Zachary Bond on 05-07-2024 ALT [Catalytic activity/Vol] 27 U/L <47 [facility] Serum or plasma albumin gregory urement (mass/volume)Ordered By: Zachary Bond on 05-07-2024 Albumin [Mass/Vol] 4.0 g/dL 3.5-5.0 [facility] Serum or plasma albumin/glob ulin mass ratioOrdered By: Zachary Bond on 05-07-2024 Albumin/Globulin [Mass ratio] 1.5 {ratio} 0.9-2.4 [facility] Serum or plasma alkaline cole sphatase measurementOrdered By: Zachary Bond on 05-07-2024 ALP [Catalytic activity/Vol] 47 U/L 40-129 [facility] Serum or plasma anion gap de termination (moles/volume)Ordered By: Zachary Bond on 05-07-2024 Anion gap [Moles/Vol] 14 mmol/L 5-15 [facility] Serum or plasma calcium gregory urement (mass/volume)Ordered By: Zachary Bond on 05-07-2024 Calcium [Mass/Vol] 9.4 mg/dL 7.6-11.0 [facility] Serum or plasma cholesterol in HDL measurement (mass/volume)Ordered By: Zachary Bond on 05-07-2024 Cholesterol in HDL [Mass/Vol] 40 mg/dL >40 [facility] Comment on above: National Cholesterol Education Program (NCEP) guidelines:<40 mg/dL: Low HDL-cholesterol (major risk factor for CHD)>= 60 mg/dL: High HDL-cholesterol (negative risk factor for CHD)HDL-cholesterol is affected by a number of factors, e.g. smoking, exercise, hormones, sex and age. Serum or plasma cholesterol measurement (mass/volume)Ordered By: Zachary Bond on 05-07-2024 Cholesterol [Mass/Vol] 157 mg/dL <201 [facility] Comment on above: Cholesterol level, D esirable <200 mg/dLBorderline high cholesterol 200-239 mg/dLHigh cholesterol >=240 mg/dLRecommendations of the NCEP Adult Treatment Panel for the following risk-cutoff thresholds for the [place] population. Serum or plasma potassium me asurementOrdered By: Zachary Bond on 05-07-2024 Potassium [Moles/Vol] 4.1 mmol/L 3.3-5.1 [facility] Serum or plasma sodium measu rement (moles/volume)Ordered By: Zachary Bond on 05-07-2024 Sodium [Moles/Vol] 140 mmol/L 133-145 [facility] Serum or plasma urea nitroge n measurement (mass/volume)Ordered By: Zachary Bond on 05-07-2024 Urea nitrogen [Mass/Vol] 14 mg/dL 4-19 [facility] Serum or plasma uric acid me asurement (mass/volume)Ordered By: Zachary Bond on 05-07-2024 Urate [Mass/Vol] 7.6 mg/dL High 3.5-7.2 [facility] Comment on above: The drugs N-Acetylcy steine and Metamizole may falsely depress this assay. Testosterone Free [Mass/Vol] Ordered By: Zachary Bond on 05-07-2024 Free Testosterone 7.1 pg/mL Low 7.2-24.0 [facility] Comment on above: Performed at: [address] [id number] Director: Sindi Kingsley MD, Phone: [phone] Total proteinOrdered By: Aranza Bond on 05-07-2024 Protein [Mass/Vol] 6.8 g/dL 5.9-8.4 [facility] Triglycerides measurementOrd ered By: Zachary Bond on 05-07-2024 Triglyceride [Mass/Vol] 80 mg/dL <199 [facility] Comment on above: The drugs N-Acetylcy steine and Metamizole may falsely depress this assay. Normal range: <150 mg/dLBorderline High: 150-199 mg/dLHigh: 200-499 mg/dLVery High: >500 mg/dL White blood cell (WBC) count Ordered By: Zachary Bond on 05-07-2024 WBC (Bld) [#/Vol] 5.5 10*3/uL 4.4-11.0 [facility] Basophil percentageOrdered B y: Zachary Bond on 05-06-2023 Cholesterol [Mass/Vol] 158 mg/dL <200 [facility] Comment on above: <200 mg/dL Desirable 200-240 mg/dL Borderline >240 mg/dL High Risk Triglyceride [Mass/Vol] 68 mg/dL <199 [facility] Comment on above: The drugs N-Acetylcy steine and Metamizole may falsely depress this assay.Serum Triglycerides Reference Interval Normal <150 mg/dL Borderline high 150 - 199 mg/dL High 200 - 499 mg/dL Very High > or = 500 mg/dL Laboratory - Chemistry and C hemistry - challengeOrdered By: Zachary Bond on 05-06-2023 Cholesterol in HDL [Mass/Vol] 47 mg/dL >40 [facility] Comment on above: The drugs N-Acetylcy steine and Metamizole may falsely depress this assay. Reference Range HDL <40 mg/dL Low HDL Cholesterol HDL >or= 60 mg/dL High HDL Cholesterol Cholesterol in LDL [Mass/Vol] 97 mg/dL 0-130 [facility] No Panel InformationOrdered By: Zachary Bond on 05-06-2023 Prostate Specific Antigen Screen 0.82 ng/mL 0.00-4.00 [facility] Comment on above: This test was perfor med using the TPSA assay method for the[facility] chemistry system. Values obtained with differentassay methods cannot be used interchangably.When changing PSA assays in the course of monitoring apatient, additional sequential testing should be carriedout to confirm baseline values. VLDL Cholesterol 14 mg/dL 5-40 [facility] Serum or plasma uric acid me asurement (mass/volume)Ordered By: Zachary Bond on 05-06-2023 Urate [Mass/Vol] 7.0 mg/dL 3.5-7.2 [facility] Comment on above: The drugs N-Acetylcy steine and Metamizole may falsely depress this assay. CNOVon 11-25-2022 CNOV Office Visit (UCWSTR) -------- HELENA SCHAFFER ([id number]) 1965 M Date Time Provider Department 11/25/22 11:30 AM HARSHAD PARKS WS During your visit today, we recorded the following information about you: Harshad Parks APRN.CNP 11/25/2022 1:31 PM Signed Patient triaged at [facility]. Here today with left arm pain/no injury, and dizziness. Hx of heart disease. I will refer to ER. Patient in no visible distress at time of triage. Referring Provider: SELF [200] Allergies As of Date: 11/25/2022 (No Known Allergies) Date Reviewed: 11/15/2022 Reviewed by: Adrienne Bender DO - Fully Assessed Primary Visit Diagnosis:Dizzy [R42] Other Visit Diagnosis:Left arm pain [M79.602] Problem List As Of Date: 11/25/2022 (None) Encounter Status:Closed by HARSHAD PARKS on 11/25/22 [facility] CNOVon 11-15-2022 CNOV Office Visit (ORTHWS) -------- HELENA SCHAFFER ([id number]) 1965 M Date Time Provider Department 11/15/22 11:15 AM ADRIENNE BENDER During your visit today, we recorded the following information about you: Maren Wright RN 11/15/2022 12:05 PM Signed Euflexxa #3, B/L knee LOT # [id number] EXP 06-30-2023 Maren Bender Adrienne PrescottDO 11/15/2022 12:05 PM Signed Follow Up Visit Chief Complaint Helena Schaffer is a 57 year old male who presents today for follow up office visit. Patient presents with: Left Knee - Injections, Follow Up Right Knee - Follow Up, Injections History of Present Illness PAIN EVALUATION No data found in the last 1 encounters. HPI: Helena Schaffer is a 57 year old male for [...] current outpatient medications on file. No current facility-administe red medications for this visit. Physical Exam Vitals: [...] knee joints Informed Consent Consent Obtained: Verbal [place] Protocol A moment to CARE was completed. [...] SIGN OUT All instruments, equipment, possible retained f (more content not included)... Normal [facility] CNOVon 11-09-2022 CNOV Office Visit (ORMDNA) -------- HELENA SCHAFFER ([id number]) 1965 M Date Time Provider Department 11/09/22 9:45 AM ADRIENNE BENDER During your visit today, we recorded the following information about you: Adrienne Bender DO 11/09/2022 10:09 AM Signed Large Joint Arthro/Inj: bilateral knee joints Informed Consent Consent Obtained: Verbal [place] Protocol A moment to CARE was completed. [...] for. Follow Up Visit Chief Complaint Helena Schaffer is a 57 year old male who presents today for follow up office visit. Patient presents with: Left Knee - Follow Up, Knee Pain, Injections Right Knee - Follow Up, Knee Pain, Injections History of Present Illness PAIN EVALUATION 11/09/2022 0977 Pain Level: 3 Pain Location: -- bilateral knee pain Description: Aching;Dull;Sore Duration Units: Years Frequency: Intermittent Intervention/Comfo rt measure: -- gel injections HPI: Helena Schaffer is a 57 year old male for [...] current outpatient medications on file. No current facility-administe red medications for this visit. Physical Exam Vitals: [...] hours Cont current meds Watch sugars/decrease carbs C (more content not included)... Normal [facility] CNOVon 11-02-2022 CNOV Office Visit (ORMDNA) -------- HELENA SCHAFFER ([id number]) 1965 M Date Time Provider Department 11/02/22 9:45 AM ADRIENNE BENDER During your visit today, we recorded the following information about you: Adrienne Bender DO 11/02/2022 2:29 PM Signed Large Joint Arthro/Inj: bilateral knee joints Informed Consent Consent Obtained: Verbal [place] Protocol A moment to CARE was completed. [...] for. Follow Up Visit Chief Complaint Helena Schaffer is a 57 year old male who presents today for follow up office visit. Patient presents with: Right Knee - Follow Up, Knee Pain Left Knee - Follow Up, Knee Pain History of Present Illness PAIN EVALUATION 11/02/2022 0956 Pain Level: 2 Pain Location: -- bilateral knee pain Description: Aching;Dull Duration Units: Months Frequency: Intermittent Intervention/Comfo rt measure: -- cortisone injection HPI: Helena Schaffer is a 57 year old male for [...] current outpatient medications on file. No current facility-administe red medications for this visit. Physical Exam Vitals: [...] with the treatment plan as discussed. Adrienne WiseP.HDwaine Referring Provider: ADRIENNE BENDER [[id number]] Allergies As of Date: 11/02/2022 (No Known Allergies) Date Reviewed: 11/02/2022 Reviewed by: Adrienne Bender, - Fully Assessed Reason for Visit: Follow Up [171] Knee Pain [132] Follow Up [171] Knee Pain [132] Primary Visit Diagnosis:Chronic pain of both knees (more content not included)... Normal [facility] CNPNon 08-22-2022 CNPN Telephone (ORQ) -------- HELENA SCHAFFER ([id number]) 1965 M Date Time Provider Department 08/22/22 ADRIENNE BENDER ORQ During your visit today, we recorded the following information about you: Dina Esposito 08/22/2022 10:13 AM Signed Called and LVM asking patient to call back to schedule bilateral knee (euflexxa) injections. These can be done with or Fidelina Clements PA-C. They are 3 injections scheduled once and week for 3 weeks. Patients last injection was 07/27/22 (cortisone). These injections can be scheduled after 07/24/22. Lyndsay Cohn 08/22/2022 3:51 PM Signed Patient needs certain dates due to going out of town. Can he do 09/07 (Saturday) Then the following 09/13 and 09/20? I told him usually they need at least 7 days in between but I'll ask for him. Jackelyn Clements PA-C 08/22/2022 4:25 PM Signed That should be fine Fidelina Austyn Birmingham 08/23/2022 9:46 AM Signed Left VM for patient to call back and schedule injections Austyn Birmingham 08/24/2022 12:04 PM Signed Patient returned call and scheduled injections. Allergies As of Date: 08/22/2022 (No Known Allergies) Date Reviewed: 07/27/2022 Reviewed by: Adrienne Bender DO - Fully Assessed Reason for Visit: Appointment [186] Injections [199] Problem List As Of Date: 08/22/2022 (None) Encounter Status:Closed by AUSTYN BIRMINGHAM on 08/24/22 Normal [facility] XR Knee - bilateral 4 Viewso n 07-28-2022 IMPRESSION: Medial compartment predominant osteoarthritis bilaterally. Instrument Lens Inspector: MARCELLO Transcribe Date/Time: Jul 28 2022 10:07P Dictated by : HARSHAD MARTELL MD This examination was interpreted and the report reviewed and electronically signed by: HARSHAD MARTELL MD on Jul 28 2022 10:08PM EST [facility] * * *Final Report* * * DATE OF EXAM: Jul 27 2022 9:47AM O 5618 - XR KNEE 4V AP/PA/LAT/MERCH SARAHI / PROCEDURE REASON: multiple diagnoses * * * * Physician Interpretation * * * * EXAMINATION / TECHNIQUE: XR KNEE 4V AP/PA/LAT/MERCH SARAHI HISTORY: PAIN IN BOTH KNEES Chronic pain of both knees Chronic pain of both knees Chronic pain of both knees COMPARISON: None. RESULT: Moderate to severe bilateral medial compartment osteoarthritis. No acute fracture or malalignment in either knee. No significant joint effusion on the right. Small left knee joint effusion. [facility] Provider, [facility] - 07/28/2022 * * *Final Report* * * DATE OF EXAM: Jul 27 2022 9:47AM MDO 5618 - XR KNEE 4V AP/PA/LAT/MERCH SARAHI / PROCEDURE REASON: multiple diagnoses * * * * Physician Interpretation * * * * EXAMINATION / TECHNIQUE: XR KNEE 4V AP/PA/LAT/MERCH SARAHI HISTORY: PAIN IN BOTH KNEES Chronic pain of both knees Chronic pain of both knees Chronic pain of both knees COMPARISON: None. RESULT: Moderate to severe bilateral medial compartment osteoarthritis. No acute fracture or malalignment in either knee. No significant joint effusion on the right. Small left knee joint effusion. IMPRESSION IMPRESSION: Medial compartment predominant osteoarthritis bilaterally. Instrument Lens Inspector: MARCELLO Transcribe Date/Time: Jul 28 2022 10:07P Dictated by : HARSHAD MARTELL MD This examination was interpreted and the report reviewed and electronically signed by: HARSHAD MARTELL MD on Jul 28 2022 10:08PM EST [facility] XR Knee - bilateral 4 ViewsO rdered By: Ccf Provider on 07-28-2022 [facility] CNOVon 07-27-2022 CNOV Office Visit (ORMDNA) -------- HELENA SCHAFFER ([id number]) 1965 M Date Time Provider Department 07/27/22 9:45 AM ADRIENNE BENDER During your visit today, we recorded the following information about you: Adrienne Bender DO 07/27/2022 1:48 PM Signed Reason for Visit/Chief Complaint Helena Schaffer is a 57 year old male who presents today for a new evaluation of following complaint: Patient presents with: Left Knee - New, Knee Pain Right Knee - New, Knee Pain History of Present Illness: PAIN EVALUATION 07/27/2022 0954 Pain Level: 4 Pain Location: -- bilateral knee pain Description: Aching;Dull;Sore Duration Units: Years Frequency: Intermittent Intervention/Comfo rt measure: -- CSI in the past HPI: Helena Schaffer is a 57 year old male presenting [...] on file prior to visit. No current facility-administe red medications on file prior to visit. ALLERGIES [...] knee joints Informed Consent Consent Obtained: Verbal [place] Protocol A moment to CARE was completed. [...] the patient voiced understanding of these instructions. S (more content not included)... [facility] - bilateral 4 Viewso n 07-27-2022 Radiology Study observation (narrative) [facility] Office Visiton 09-06-2016 Documentation of current medications (procedure) Done Invalid Interpretation Code [facility] Work Phone: Documentation of current medications (procedure) T Invalid Interpretation Code [facility] Work Phone: Protein mass conc Done [facility] Work Phone: Protein mass conc T [facility] Work Phone: Tobacco smoking status NHIS Never [facility] Work Phone: Tobacco smoking status NHIS Never smoker [facility] Work Phone: Tobacco use [facility] Never smoker Invalid Interpretation Code [facility] Work Phone: Office Visiton 08-14-2016 Documentation of current medications (procedure) Done Invalid Interpretation Code [facility] Work Phone: Documentation of current medications (procedure) T Invalid Interpretation Code [facility] Work Phone: Protein mass conc Done [facility] Work Phone: [facility] Work Phone: Tobacco smoking status NHIS Never Invalid Interpretation Code [facility] Work Phone: Tobacco smoking status NHIS Never smoker [facility] Work Phone: Tobacco use [facility] Never smoker Invalid Interpretation Code [facility] Work Phone: No Panel Information [facility] Vital Signs Date Time Vital Sign Value Performing Clinician Delmy boggs 08-14-2016 15:00-0400 BMI (Body Mass Index) 28.69 kg/m2 [facility] Work Phone: 08-14-2016 15:00-0400 Height 177.8 cm [facility] Work Phone: 08-14-2016 15:00-0400 Weight 90.72 kg [facility] Work Phone: Encounters Encounter Date Encounter Type Care Provider Facility Start: 09-30-2024 ambulatory Jey English Facility :[facility] Start: 09-01-2024 ambulatory Zachary Bond Facility: [facility] Start: 05-19-2024 Encounter for genera l adult medical examination without abnormal findings Zachary Bond [facility] Start: 05-07-2024 End: 05-07-[address] Zachary Bond DO Work Phone: [facility] Work Phone: Start: 05-07-2024 End: 05-07-[address] Zachary Bond DO [facility] Start: 05-07-2024 End: 05-07-2024 ambulatory Zachary Varun Facility:[facility] Start: 04-20-2024 ambulatory Zachary [facility] Facility: [facility] Start: 10-29-2023 Encounter for genera l adult medical examination without abnormal findings Zachary Varun [facility] Start: 05-06-2023 End: 05-06-2023 ambulatory [facility] Work Phone: Start: 05-06-2023 End: 05-06-2023 Patient encounter procedure [facility]-Raj Sams [facility] Start: 11-25-2022 End: 11-25-2022 ambulatory ZACHARY Sullivan VARUN Facility:[facility] Start: 11-25-2022 End: 11-25-2022 Patient encounter procedure Harshad Parks APRN.CNP Work Phone: [facility] Comment on above: Dizzy (Primary Dx); Left arm pain Start: 11-15-2022 End: 11-15-2022 ambulatory ADRIENNE BENDER Facility:[facility] Start: 11-15-2022 End: 11-15-2022 Patient encounter procedure Adrienne Bender DO Work Phone: Orthopaedics Comment on above: Chronic pain of both knees (Primary Dx) Start: 11-09-2022 End: 11-09-2022 ambulatory ADRIENNE BENDER Facility:[facility] Start: 11-09-2022 End: 11-09-2022 Patient encounter procedure Adrienne Bender DO Work Phone: Orthopaedics Comment on above: Chronic pain of both knees (Primary Dx); Primary osteoarthritis of both knees Start: 11-02-2022 End: 11-02-2022 ambulatory ZACHARY BOND Facility:[facility] Start: 11-02-2022 End: 11-02-2022 Patient encounter procedure Adrienne Bender DO Work Phone: Orthopaedics Comment on above: Chronic pain of both knees (Primary Dx); Primary osteoarthritis of both knees Start: 07-27-2022 End: 07-27-2022 ambulatory ZACHARY BOND Facility:[facility] Start: 07-27-2022 End: 07-27-2022 Subsequent hospital visit by physician [employer] Glenna Duffy Work Phone: Radiology Comment on above: Chronic pain of both knees [M25.561, M25.562, G89.29] Start: 10-27-2021 Non-patient / Non-visit Dr. Mariah Bond Work Phone: [facility] Start: 10-27-2021 End: 10-27-[address] Zachary Bond Work Phone: [facility] Work Phone: Start: 10-27-2021 End: 10-27-[address] Zachary Bond Work Phone: [facility]-Cardiovascula r Services Start: 09-28-2021 End: 09-28-2021 Patient encounter procedure [facility]-Radiology, [place] Start: 09-25-2021 End: 09-25-2021 Patient encounter procedure Rick Hawthorne APRN.[facility] Work Phone: [facility] Comment on above: Procedure not eduardo d out (Primary Dx) Procedures Date Procedure Procedure Detail Performing Clinician Start: 11-15-2022 Arthrocentesis aspir &/inj major jt/bursa w/o us Adrienne Bender DO Work Phone: Start: 11-09-2022 Arthrocentesis aspir &/inj major jt/bursa w/o us Adrienne Bender DO Work Phone: Start: 11-02-2022 Arthrocentesis aspir &/inj major jt/bursa w/o us Adrienne Bender DO Work Phone: Start: 07-27-2022 Radiologic exam knee complete 4/more views Adrienne Bender DO Work Phone: Start: 09-28-2021 Plain chest X-ray Plan of Treatment Date Care Activity Detail Author Start: 11-10-2023 Covid-19 Vaccine ( season) Covid-19 Vaccine () [facility] Start: 11-10-2023 Influenza vaccination Influenza Vaccine (#1) [facility] Start: 11-09-2022 Influenza vaccination [facility] Start: 03-11-2022 DEPRESSION ASSESSMENT DEPRESSION ASSESSMENT [facility] Start: 11-09-2021 Influenza vaccination INFLUENZA (#1) [facility] Start: 2021 PROSTATE CANCER SCREENING DISCUSSION PROSTATE CANCER SCREENING DISCUSSION [facility] Start: 2021 Prostate specific antigen measurement Prostate Cancer Screening Discussion [facility] Start: 11-23-2020 COVID-19 VACCINE (3 - Booster for Moderna series) COVID-19 VACCINE (3 - Booster for Moderna series) [facility] Start: 08-18-2020 COVID-19 VACCINE (3 - Moderna series) COVID-19 VACCINE (3 - Moderna series) [facility] Start: 09-06-2016 End: 09-06-2016 Appointment Appointment [facility] Work Phone: Start: 08-14-2016 End: 08-14-2016 Mri jnt of lwr extre w/o dye MRI Joint Lower Extremity [facility] Work Phone: Start: 08-14-2016 End: 08-14-2016 X-ray exam, knee, 4 or more X-Ray, Knee [facility] Work Phone: Start: 2016 SHINGRIX VACCINE (1 of 2) SHINGRIX VACCINE (1 of 2) [facility] Start: 2011 COLOGUARD (FIT-DNA) COLOGUARD (FIT-DNA) [facility] Start: 2011 Colonoscopy COLONOSCOPY [facility] Start: 2011 COLORECTAL CANCER SCREENING COLORECTAL CANCER SCREENING [facility] Start: [address] COLONOGRAPHY [facility] Start: 2011 DIABETES SCREEN DIABETES SCREEN [facility] Start: 2011 Diabetes Screening Diabetes Screening [facility] Start: 2011 FECAL OCCULT BLOOD FECAL OCCULT BLOOD [facility] Start: 2011 Screening for malignant neoplasm of colon [facility] Start: 2011 SIGMOIDOSCOPY SIGMOIDOSCOPY [facility] Start: 2001 Lipid 1996 panel - Serum or Plasma Lipid Screening [facility] Start: 2001 Lipid panel Lipid Screening [facility] Start: 2001 LIPID SCREEN LIPID SCREEN [facility] Start: 1985 Hepatitis B Vaccine (1 of 3 - 19+ 3-dose series) Hepatitis B Vaccine (1 of 3 - 19+ 3-dose series) [facility] Start: 1985 Urine microalbumin profile [facility] Start: 1984 Anxiety Screening Anxiety Screening [facility] Start: 1984 Depression Screening Depression Screening [facility] Start: 1984 HEPATITIS C SCREENING HEPATITIS C SCREENING [facility] Start: 1984 Hepatitis C screening Hepatitis C Screening [facility] Start: 1984 HIV SCREENING HIV SCREENING [facility] Start: 1984 HIV screening HIV Screening [facility] Start: 1978 Adult depression screening assessment DEPRESSION SCREENING [facility] Start: 1965 HEPATITIS B (1 of 3 - 3-dose series) HEPATITIS B (1 of 3 - 3-dose series) [facility] Start: 1965 Hepatitis B Vaccine (1 of 3 - 3-dose series) Hepatitis B Vaccine (1 of 3 - 3-dose series) [facility] Immunizations Immunization Date Immunization Notes Care Provider Mary yanez 01-14-2010 influenza virus vaccine, unspecified formulation Rick Hawthorne MANAGER LOAN.[facility] Work Phone: [facility] Work Phone: Payers Date Payer Category Payer Self-pay [id number] 2019 Unknown [facility] P[employer] [id number] 2019-Present [phone] [address] [place] [address] PPO [id number] 2019 Unknown [id number] 2019 Unknown [id number] 2012 Unknown [id number] Unknown [id number] Unknown [id number] Unknown [id number] Unknown [id number] Social History Date Type Detail Facility Start: 03-17-2021 End: 11-25-2022 Tobacco smoking status NHIS Tobacco smoking consumption unknown [facility] Start: 1965 Sex Assigned At Not on file [facility] Start: 09-15-2021 End: 09-25-2021 Exposure to SARS-CoV-2 (event) Yes [facility] Work Phone: Start: 05-02-[address] [facility] Start: 1965 Sex Assigned At Male [facility] Start: 07-27-2022 End: 11-25-2022 Tobacco smoking status AZIS Never smoked tobacco [facility] Start: 07-27-2022 Tobacco use and exposure Smokeless tobacco non-user [facility] Start: 07-27-2022 End: 11-02-2022 History of Social function [facility] Start: 07-27-2022 End: 11-02-2022 Tobacco use panel [facility] National Score (1-100), lower number is lower risk 57 [facility] Start: 05-19-2024 Sex Male (finding) [facility] Clinical Notes 09-25-2021 to 11-25-2022 Harshad Parks APRN.BAR PILOT - 11/25/2022 1:30 PM Adrienne Hendricks DO - 11/15/2022 11:16 AM Maren Roberson RN - 11/15/2022 11:12 AM Adrienne Hendricks DO - 11/09/2022 9:56 AM EDT Note Date & Type Note Facility 11-25-2022 Note HNO ID: [id number] Author: Harshad Parks APRN.CNP Service: ? Author Type: Nurse Practitioner Type: Progress Notes Filed: 11/25/2022 1:31 PM Note Text: Patient triaged at [facility]. Here today with left arm pain/no injury, and dizziness. Hx of heart disease. I will refer to ER. Patient in no visible distress at time of triage. [facility] 11-25-2022 History of Present illness Narrative Patient triaged at [facility]. Here today with left arm pain/no injury, and dizziness. Hx of heart disease. I will refer to ER. Patient in no visible distress at time of triage. documented in this encounter [facility] 11-15-2022 Note HNO ID: [id number] Author: Adrienne Bender DO Service: ? Author Type: Physician Type: Progress Notes Filed: 11/15/2022 12:05 PM Note Text: Follow Up Visit Chief Complaint Helena Schaffer is a 57 year old male who presents today for follow up office visit. Patient presents with: Left Knee - Injections, Follow Up Right Knee - Follow Up, Injections History of Present Illness PAIN EVALUATION No data found in the last 1 encounters. HPI: Helena Schaffer is a 57 year old male for [...] knee joints Informed Consent Consent Obtained: Verbal [place] Protocol A moment to CARE was completed. [...] possible retained foreign bodies accounted for. Adrienne Bender D.O. [facility]P.[facility] 11-15-2022 Note HNO ID: [id number] Author: Maren Wright RN Service: ? Author Type: ? Type: Progress Notes Filed: 11/15/2022 12:05 PM Note Text: Euflexxa #3, B/L knee LOT # [id number] EXP 06-30-2023 Maren Wright RN [facility] 11-15-2022 History of Present illness Narrative Associated Order(s): Large Joint Arthro/Inj: bilateral knee joints Post-Procedure Diagnose(s): Chronic pain of both knees Follow Up Visit Chief Complaint Helena Schaffer is a 57 year old male who presents today for follow up office visit. Patient presents with: Left Knee - Injections, Follow Up Right Knee - Follow Up, Injections History of Present Illness PAIN EVALUATION No data found in the last 1 encounters. HPI: Helena Schaffer is a 57 year old male for a follow up visit 3/3 Eulfexxa injection to B/L knees. Denies pain. [...] knee joints Informed Consent Consent Obtained: Verbal [place] Protocol A moment to CARE was completed. [...] possible retained foreign bodies accounted for. Adrienne Bender D.O. M.P.H. Euflexxa #3, B/L knee LOT # [id number] EXP 06-30-2023 Maren Wright RN documented in this encounter [facility] 11-09-2022 Note HNO ID: [id number] Author: Adrienne Bender DO Service: ? Author Type: Physician Type: Progress Notes Filed: 11/09/2022 10:09 AM Note Text: Large Joint Arthro/Inj: bilateral knee joints Informed Consent Consent Obtained: Verbal [place] Protocol A moment to CARE was completed. [...] for. Follow Up Visit Chief Complaint Helena Schaffer is a 57 year old male who [...] Intervention/Comfort measure: -- gel injections HPI: Helena Schaffer is a 57 year old male for [...] worse before it (more content not included)... [facility] 11-09-2022 History of Present illness Narrative Associated Order(s): Large Joint Arthro/Inj: bilateral knee joints Post-Procedure Diagnose(s): Primary osteoarthritis of both knees; Chronic pain of both knees Images from the original note were not included. Large Joint Arthro/Inj: bilateral knee joints Informed Consent Consent Obtained: Verbal [place] Protocol A moment to CARE was completed. [...] for. Follow Up Visit Chief Complaint Helena Schaffer is a 57 year old male who [...] Intervention/Comfort measure: -- gel injections HPI: Helena Schaffer is a 57 year old male for [...] May get injection every 3 months Adrienne Bender D.O. M.P.H. documented in this encounter [facility] 11-02-2022 Note HNO ID: [id number] Author: Adrienne Bender, DO Service: ? Author Type: Physician Type: Progress Notes Filed: 11/02/2022 2:29 PM Note Text: Large Joint Arthro/Inj: bilateral knee joints Informed Consent Consent Obtained: Verbal [place] Protocol A moment to CARE was completed. [...] for. Follow Up Visit Chief Complaint Helena Schaffer is a 57 year old male who presents today for follow up office visit. Patient presents with: Right Knee - Follow Up, Knee Pain Left Knee - Follow Up, Knee Pain History of Present Illness PAIN EVALUATION 11/02/2022 0956 Pain Level: 2 Pain Location: -- bilateral knee pain Description: Aching;Dull Duration Units: Months Frequency: Intermittent Intervention/Comfort measure: -- cortisone injection HPI: Helena Schaffer is a 57 year old male for a follow up visit bilateral knee pain. Patient is here to have bilateral euflexxa injection 1/. Had cortisone injection in july that did [...] with the treatment plan as discussed. Adrienne Bender D.O. M.P.H. [facility] 11-02-2022 History of Present illness Narrative Associated Order(s): Large Joint Arthro/Inj: bilateral knee joints Post-Procedure Diagnose(s): Primary osteoarthritis of both knees; Chronic pain of both knees Images from the original note were not included. Large Joint Arthro/Inj: bilateral knee joints Informed Consent Consent Obtained: Verbal [place] Protocol A moment to CARE was completed. [...] for. Follow Up Visit Chief Complaint Helena Schaffer is a 57 year old male who presents today for follow up office visit. Patient presents with: Right Knee - Follow Up, Knee Pain Left Knee - Follow Up, Knee Pain History of Present Illness PAIN EVALUATION 11/02/2022 0956 Pain Level: 2 Pain Location: -- bilateral knee pain Description: Aching;Dull Duration Units: Months Frequency: Intermittent Intervention/Comfort measure: -- cortisone injection HPI: Helena Schaffer is a 57 year old male for a follow up visit bilateral knee pain. Patient is here to have bilateral euflexxa injection 1/3. Had cortisone injection in july that did [...] with the treatment plan as discussed. Adrienne Bender D.O. M.P.H. documented in this encounter [facility] 07-27-2022 Note HNO ID: [id number] Author: Adrienne Bender DO Service: ? Author Type: Physician Type: Progress Notes Filed: 07/27/2022 1:48 PM Note Text: Reason for Visit/Chief Complaint Helena Schaffer is a 57 year old male who [...] -- CSI in the past HPI: Helena Schaffer is a 57 year old male presenting [...] knee joints Informed Consent Consent Obtained: Verbal [place] Protocol A moment to CARE was completed. [...] BOTH/LAT/MERC BILATERAL Ex (more content not included)... [facility] 07-27-2022 History of Present illness Narrative Radiology Service Progress Note PATIENT NAME: Helena Schaffer DATE OF SERVICE: July 27, 2022 TIME: 9:47 AM PATIENT IDENTITY VERIFICATION COMPLETED USING TWO (2) IDENTIFIERS: Name and Date of confirmed by patient verbally. FALL SCREENING: Has the patient had 2 falls in the last year or 1 fall with injury or currently using an Ambulatory Assistive Device (Walker, Cane, Wheelchair, Crutches, etc.)? No PATIENT GENDER DATA: Male PATIENT RELEVANT IMPLANT DATA REVIEWED: Not Applicable RADIOLOGY DEPARTMENT: General X-ray: Exam(s) Completed: Lower Extremity X-Ray(s): Knee, AP / Lat / Merchant Bilateral PERIPHERAL IV DATA: Not applicable SIGNED BY: RT Jose(R) July 27, 2022 9:47 AM documented in this encounter [facility] 09-25-2021 History of Present illness Narrative Nontoxic-appearing [...] agrees with plan of care. Rick Hawthorne APRN.CNP documented in this encounter [facility] Evaluation note Diagnosis Procedure not carried out- Primary Procedure not carried out for other reasons [facility]Evalun[facility] noteNo assessment information availableWUniversity [facility]als [facility] Work Phone: Evaluation note* Diagnosis Chronic pain of both knees- Primary Primary osteoarthritis of both knees Primary localized osteoarthrosis, lower leg [facility] Diagnosis Chronic pain of both knees- Primary Primary osteoarthritis of both knees Primary localized osteoarthrosis, lower leg [facility] Diagnosis Chronic pain of both knees- Primary [facility]* Diagnosis Dizzy- Primary Dizziness and giddiness Left arm pain Pain in limb [facility] Diagnosis Chronic pain of both knees [facility] Diagnostic Procedure Only (Routine) - Closed Specialty Diagnoses / Procedures Referred By Contac t Referred To Contact XR IMAGING Diagnoses Chronic pain of both knees Procedures XR KNEE GENERAL 4V AP BOTH/PA BOTH/LAT/MERC BILATERAL RADIOLOGIC EXAM KNEE COMPLETE 4/MORE VIEWS Adrienne Bender DO [address] [place] [address] [place] [address] Referral ID Status Reason Start Date Expiration Date V isits Requested Visits Authorized [id number] Closed Auto-Generate d Referral 07/27/2022 03/10/2023 1 1 [facility]ative)No reason for referral information availableWUniversity Hospitals [facility] Work Phone: Reason for visit Narrative* Diagnostic Procedure Only (Routine) - Closed Specialty Diagnoses / Procedures Referred By Ebony plaza Referred To Contact Radiology / [facility] Diagnoses Bilateral knee pain bilateral knee pain Procedures RADIOLOGIC EXAMINATION KNEE 1/2 VIEWS XR [facility] [address] [address] Referral ID Status Reason Start Date Expiration Date Visits Re quested Visits Authorized [id number] Closed 07/27/2022 03/10/2023 1 1 [facility] Chief Complaint and Reason for Visit Chief Complaint CHEST PAIN Chief Complaint CHEST PAIN CHEST PAIN Family History No Family History Records Found Relationship Condition Age at Onset Recorded Date/T mike mother Malignant neoplasm of breast Unknown father Coronary artery disease Unknown Advance Directives No Advanced Directives Records Found Advance Directive Response Recorded Date/ Time Living Will Yes April 30 3:04pm Power of Slip Cover Cutter Yes April 30, 2018 3:04pm Advance Directive Response Recorded Date/ Time Living Will Yes November 25, 2022 10:56am Power of Slip Cover Cutter Yes November 10:56am Medications Administered Section Inactive Administered Medications - [...] EDT 20 mg Knee, Right Summary Purpose Additional Source Comments Source Comments (unrecognize d section and content) In the event this informatio n is protected by the Federal Confidentiality of Alcohol and Drug Abuse Patient Records regulations: The Federal rules restrict any use of the information to criminally investigate or prosecute any alcohol or drug abuse patient.[facility] the event this information is protected by the Federal Confidentiality of Alcohol and Drug Abuse Patient Records regulations: The Federal rules restrict any use of the information to criminally investigate or prosecute any alcohol or drug abuse patient.[facility] HealthIn the event this information is protected by the Federal Confidentiality of Alcohol and Drug Abuse Patient Records regulations: The Federal rules restrict any use of the information to criminally investigate or prosecute any alcohol or drug abuse patient.[facility] HealthIn the event this information is protected by the Federal Confidentiality of Alcohol and Drug Abuse Patient Records regulations: The Federal rules restrict any use of the information to criminally investigate or prosecute any alcohol or drug abuse patient.[facility] HealthIn the event this information is protected by the Federal Confidentiality of Alcohol and Drug Abuse Patient Records regulations: The Federal rules restrict any use of the information to criminally investigate or prosecute any alcohol or drug abuse patient.[facility] HealthIn the event this information is protected by the Federal Confidentiality of Alcohol and Drug Abuse Patient Records regulations: The Federal rules restrict any use of the information to criminally investigate or prosecute any alcohol or drug abuse patient.[facility] Care Teams (unrecognized sec tion and content) Travel Consultant Relationship Specialty Start Date End Date Zachary Bond DO [address] [place] [address] PCP - General Family Practice 09/25/21 Travel Consultant Relationship Specialty Start Date End Date Zachary Bond DO [address] [place] [address] PCP - General Family Medicine 09/25/21 Travel Consultant Relationship Specialty Start Date End Date Zachary Bond DO [address] [place] [address] PCP - General Family Medicine 09/25/21 Travel Consultant Relationship Specialty Start Date End Date Zachary Bond DO [address] [place] [address] PCP - General Family Medicine 09/25/21 Travel Consultant Relationship Specialty Start Date End Date Zachary Bond DO [address] [place] [address] PCP - General Family Medicine 09/25/21 Team Status: Active Member Role Status Dates Dr. Zachary Bond DO Family Provider Active Dr. Zachary Bond DO Primary Care Provider Active Team Status: Inactive Member Role Status Dates Dr. Zachary Bond DO Primary Care Provider, Attendin g Provider Active Travel Consultant Relationship Specialty Start Date End Date Zachary Bond DO [address] [place] [address] PCP - General Family Medicine 09/25/21 Team Status: Inactive Member Role Status Dates Dr. Zachary Bond DO Primary Care Provider Active Start: May 07, 2024 End: May 07, 2024 Dr. Zachary Bond DO Attending Provider Active Start: May 07, 2024 End: May 07, 2024 Dr. Zachary Bond DO Referring Provider Active Start: May 07, 2024 End: May 07, 2024 Goals (unrecognized section and content) Goals may be documented in a n alternate sectionGoals may be documented in an alternate sectionGoals may be documented in an alternate sectionGoals may be documented in an alternate section Reason for Visit (unrecogniz ed section and content) Reason Comments Injections Follow Up Specialty Diagnoses / Procedures Referred By Contac t Referred To Contact ORTHOPAEDIC SURGERY Diagnoses Bilateral primary osteoarthritis of knee Procedures EUFLEXXA INJ PER DOSE EUFLEXXA OR PAYOR PREFERRED Adrienne Bender DO [facility] [place] [address] [facility] [address] [address] Referral ID Status Reason Start Date Expiration Date V isits Requested Visits Authorized [id number] Authorized 08/16/2022 11/16/2022 6 6 Reason Comments Follow Up Knee Pain Injections Reason Comments Follow Up Knee Pain (unrecognized sect ion and content) No Status Records FoundNo Status Records Found INFORMATION SOURCE (unrecogn ized section and content) DATE CREATED AUTHOR 11/26/2022 [facility] DATE CREATED AUTHOR AUTHOR'S MAYRA CEE 08/30/2024 [facility] FOR RECORDS PERTAINING TO PATIENTS WHO ARE [...] BE BASED ON THE PRIMARY CLINICAL RECORDS. [facility] [employer] [facility]. provides no warranty or guarantee of the accuracy or completeness of information in this document.
--- NOTE | 2024-09-01 09:03 | PCM.PRE.AN2 ---
ASA Classification* ASA Classification ASA Classification: 2 Assessment & Plan Anesthesia* Anesthesia Assessment Anesthesia Assessment: Discussed sedation and/or anesthesia options, risks, benefits, and alternatives with patient/parents/legal guardian/POA. Questions invited. The patient/parents/legal guardian/POA seems to understand and agrees to proceed with anesthesia plan. Reviewed the physical assessment, medical history, allergy history and patient home medications list prior to surgery/procedure/anesthetic and documented any changes. Performed airway and anesthesia risk assessments. Anesthesia Type Anesthesia Type: MAC History Source History Obtained from:: Patient and Chart Anesthesia Focused Assessment* Temperature: 98.4 F Pulse Rate: 78 Blood Pressure: 137/79 Respiratory Rate: 16 Pulse Ox: 98 Oxygen Delivery Method: Room Air Airway Assessment Mouth opens: >3 cm Mallampati Score: II Teeth Condition: Caps/Crowns (Patient has a crown. It is tight.) Neck Range of motion (ROM): Full ROM Labs Anesthesia Preop lab: CBC WBC 5.5 K/mm3 (4.4-11.0) 05/07/24 08:57 05/07/24 RBC 5.08 M/mm3 (4.6-6.2) 05/07/24 08:57 05/07/24 Hgb 15.7 g/dL (13.0-16.5) 05/07/24 08:57 05/07/24 Hct 46.6 % (40-54) 05/07/24 08:57 05/07/24 Plt Count 272 K/mm3 (150-450) 05/07/24 08:57 05/07/24 CHEMISTRY Potassium 4.1 mmol/L (3.3-5.1) 05/07/24 08:59 05/07/24 Sodium 140 mmol/L (133-145) 05/07/24 08:59 05/07/24 Magnesium 2.3 mg/dL (1.6-2.6) 11/25/22 12:00 11/25/22 BUN 14 mg/dL (4-19) 05/07/24 08:59 05/07/24 Creatinine 1.1 mg/dL (0.8-1.3) 05/07/24 08:59 05/07/24 Glucose 94 mg/dL (70-99) 05/07/24 08:59 05/07/24 POC Glucose 102 mg/dL (74-106) 11/25/22 12:00 11/25/22 TSH 2.69 uIU/mL (0.358-3.74) 01/29/12 08:29 01/29/12 COAG Pre-Assessment Diagnosis/Proposed Procedure Planned Operative Procedure(s): CSCOPE Anesthesia History 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 When Was Last Pacemaker Check QUESTION #4 FULL TEXT: You/Your Family Experience fever (hyperthermia) with Anesthesia Last Oral Intake Last Oral intake: Last Oral Intake NPO since 00:00 09/01/24 08:37 Meds taken in AM with sips of No 09/01/24 08:37 water? Meds patient instructed to take am of surgery PONV PONV - web content coordinator: PONV - web content coordinator Female No 08/27/24 14:58 HX of Motion Sickness No 08/27/24 14:58 HX of N/V After Surgery No 08/27/24 14:58 Non-Smoker Yes 08/27/24 14:58 Duration of Surgery greater No 08/27/24 14:58 than 60 minutes Number of Risk Factors 1 08/27/24 14:58 PONV Score Low Risk 08/27/24 14:58 Height & Weight Height & Weight: Anesthesia: Height & Weight Height 5 ft 10 in 09/01/24 08:37 Weight: 92.2 kg 09/01/24 08:37 Body Mass Index (BMI) 29.1 09/01/24 08:37 Respiratory Assessment Respiratory Assessment - web content coordinator: Respiratory Tract Infection Hx - web content coordinator Hx Respiratory Tract Infection No 08/27/24 14:58 STOP Sleep Apnea STOP Sleep Apnea - web content coordinator: STOP Sleep Apnea - web content coordinator Hx Hypertension No 08/27/24 14:58 Hx Sleep Apnea No 08/27/24 14:58 CPAP BIPAP Do you snore loudly (louder No 08/27/24 14:58 than talking or can be heard Do you often feel tired/ No 08/27/24 14:58 fatigued/ sleepy during daytime? Has anyone observed you stop No 08/27/24 14:58 breathing during sleep? STOP Results Negative 08/27/24 14:58 QUESTION #5 FULL TEXT : Do you snore loudly (louder than talking or can be heard through closed doors)? Tobacco Use History Tobacco Use History - web content coordinator: Tobacco Use History - web content coordinator Tobacco Use Smoking Status Never smoker 08/27/24 14:58 Hx Tobacco Use No 08/27/24 14:58 Years Smoking Packs Smoked per Day Smoking Cessation Date was within the last 15 years Hx Smoking Cessation Date Hx Smoking Cessation Counseling Hematologic Medial History Hematologic Hx - web content coordinator: Hematologic Medical Hx - manager private Hx of Blood Transfusion No 08/27/24 14:58 Hx of Transfusion in last 3 No 08/27/24 14:58 Months Date of Last Transfusion (if within last 3 months) Ever experience any problems No 08/27/24 14:58 with transfusion(s)? Specify any problems Hx of Preganancy in last 3 N/A 08/27/24 14:58 Months Nurse Filling Out Transfusion NBUCHER 08/27/24 14:58 & Questions: Date: 08/27/24 08/27/24 14:58 Time: 14:58 08/27/24 14:58 Patient unable to answer at this time (ie. confused, unrespo /Reproduction History /Reproductive History - web content coordinator: /Reproductive Hx- web content coordinator Hx Now No 08/27/24 14:58 Gestational Age (in weeks): EDC: Hx Hx Para Hx Section SAB No 08/27/24 14:58 Active Medications Active Medications: Current Medications Generic Name Dose Route Start Last Admin Trade Name Freq PRN Reason Stop Dose Admin Lactated Ringer's 1,000 mls @ 15 mls/hr 09/01/24 08:30 09/01/24 08:36 IV 15 mls/hr .Q48H KANNAN Administration PFSH Medical History Arthritis Non-smoker Normal stress echocardiogram Screening for intestinal cancer Home Medications ?Medication ?Instructions ?Recorded ?Last Taken ?Type sildenafil (pulm.hypertension) 20 40 - 100 mg PO DAILY PRN PULMONARY 08/27/24 Unknown History mg tablet HTN Allergy/AdvReac Type Severity Reaction Status Date / Time naproxen AdvReac Hives Verified 09/01/24 08:34 Family History Mother Breast cancer Father CAD (coronary artery disease) Surgical History History of colonoscopy (~04/2018) [place] teeth extracted Social History Smoking Status: Never smoker alcohol intake: current details: <1 per day Review of Systems (Anesthesia) ROS Narrative System reviewed and no additional complaints, except as documented.
--- NOTE | 2024-09-01 09:42 | HP.PCM_ITS ---
HPI - General General Date of Admission: 09/01/24 Date of Service: 09/01/24 Chief Complaint: Screening colonoscopy HPI Narrative HELENA SCHAFFER, is a 59 M who presents for screening colonoscopy. His last colonoscopy was about 5 years ago. It sounds as though he had a polyp at that time. He was told to come back again in about 5 years. He denies any GI issues or complaints. No family history of colon polyps or colon cancer [facility] Medical History Arthritis Non-smoker Normal stress echocardiogram Screening for intestinal cancer Home Medications ?Medication ?Instructions ?Recorded ?Last Taken ?Type sildenafil (pulm.hypertension) 20 40 - 100 mg PO DAILY PRN PULMONARY 08/27/24 Unknown History mg tablet HTN Allergy/AdvReac Type Severity Reaction Status Date / Time naproxen AdvReac Hives Verified 09/01/24 08:34 Family History Mother Breast cancer Father CAD (coronary artery disease) Surgical History History of colonoscopy (~04/2018) [place] teeth extracted Social History Smoking Status: Never smoker alcohol intake: current details: <1 per day Vital Signs Vital Signs Vital Signs: 09/01/24 08:37 09/01/24 08:37 09/01/24 09:09 Temperature 98.4 F 98.4 F Temperature Source Temporal Pulse Rate 78 78 Respiratory Rate 16 16 Respiratory Pattern Normal Blood Pressure 137/79 H 137/79 H Blood Pressure Mean 98 Blood Pressure Source Monitor Blood Pressure Position Semi-Fowlers Blood Pressure Location Right Arm Pulse Ox 98 98 Oxygen Delivery Method Room Air Room Air Weight Weight: 203 lb 4.259 oz Body Mass Index (BMI) 29.1 Physical Exam Const alert, oriented x3 and no apparent distress Assessment & Plan Assessment/Plan (1) History of colonoscopy: PLAN: Plan The patient is a 59-year-old male in need of a screening colonoscopy. Last colonoscopy was about 5 years ago. It sounds as though the polyp may have been noted at that time. We discussed the details of the planned procedure and he wishes to proceed.
--- NOTE | 2024-09-01 10:12 | OP.COLON_ITS ---
Patient Name: Sukhjinder Lopez Procedure Date: 09/01/2024 9:42 AM Date of : 1965 Age: 59 Procedure: Colonoscopy Indications: Screening for colorectal malignant neoplasm Providers: Tam Kidd MD Referring MD: Sánchez Bond Medicines: Monitored Anesthesia Care Patient Profile: Refer to note in patient chart for documentation of history and physical. Last Colonoscopy: 5 years ago. Complications: No immediate complications. Estimated blood loss: None. Procedure: Pre-Anesthesia Assessment: - Prior to the procedure, a History and Physical was performed, and patient medications and allergies were reviewed. The patient's tolerance of previous anesthesia was also reviewed. The risks and benefits of the procedure and the sedation options and risks were discussed with the patient. All questions were answered, and informed consent was obtained. Prior Anticoagulants: The patient has taken no anticoagulant or antiplatelet agents. ASA Grade Assessment: II - A patient with mild systemic disease. After reviewing the risks and benefits, the patient was deemed in satisfactory condition to undergo the procedure. After I obtained informed consent, the scope was passed under direct vision. Throughout the procedure, the patient's blood pressure, pulse, and oxygen saturations were monitored continuously. The colonoscope was introduced through the anus and advanced to the cecum, identified by appendiceal orifice and ileocecal valve. The entire colon was well visualized. The colonoscopy was performed without difficulty. The patient tolerated the procedure well. The quality of the bowel preparation was adequate. Moderate Sedation: See the other procedure note for documentation of moderate sedation with intraservice time. Scope In: 9:54:04 AM Scope Withdrawal Time 0 hours 4 minutes 29 seconds Scope Out: 10:05:05 AM Total Procedure Duration Time 0 hours 11 minutes 1 second Findings: The perianal and digital rectal examinations were normal. Hemorrhoids were found during retroflexion. The hemorrhoids were mild. The exam was otherwise without abnormality on direct and retroflexion views. Impression: - Hemorrhoids. - The examination was otherwise normal on direct and retroflexion views. - No specimens collected. Recommendation: - Discharge patient to home (ambulatory). - High fiber diet. - Repeat colonoscopy in 10 years for screening purposes. - Return to my office PRN. - Continue present medications. Procedure Code(s): --- Professional --- 77884, Colonoscopy, flexible; diagnostic, including collection of specimen(s) by brushing or washing, when performed (separate procedure) Diagnosis Code(s): --- Professional --- K64.9, Unspecified hemorrhoids Z12.11, Encounter for screening for malignant neoplasm of colon CPT copyright 2021 [employer]. All rights reserved. The codes documented in this report are preliminary and upon digital product specialist review may be revised to meet current compliance requirements. Tam Kidd MD 09/01/2024 10:11:42 AM This report has been signed electronically. Number of Addenda: 0 Note Initiated On: 09/01/2024 9:42 AM
--- NOTE | 2024-09-01 10:12 | OP.CCLET_ITS ---
09/01/2024 Sánchez Bond [address] [place] [address] Re : Colonoscopy procedure for Sukhjinder Stringerer Dear Dr. Bond This procedure was performed on Sunday, September 01, 2024. My impressions and recommendations are as follows: Impressions : - Hemorrhoids. - The examination was otherwise normal on direct and retroflexion views. - No specimens collected. Recommendations : - Discharge patient to home (ambulatory). - High fiber diet. - Repeat colonoscopy in 10 years for screening purposes. - Return to my office PRN. - Continue present medications. My findings are described in the full procedure note, which is enclosed. If I can be of further assistance, please feel free to contact me at . Sincerely, Tam Kidd MD 09/01/2024 10:11:42 AM This report has been signed electronically.
--- NOTE | 2024-09-01 10:14 | PCM.POST.ANE ---
Anesthesia: Postop Eval I Current Vital Signs Temperature: 97.8 F Pulse Rate: 62 Blood Pressure: 99/69 Respiratory Rate: 16 Pulse Ox: 96 Oxygen Delivery Method: Room Air Assessment Airway patent: Yes Spontaneous unlabored respirations: Yes Mental status: Asleep nausea: No Vomiting: No Anesthesia Complication: No Fluid Hydration Crystalloid volume administer (ml): 600 Total IV fluid infused: 600 Progress Note Anesthesia document: Postop Eval 1 completed: Yes
--- NOTE | 2024-09-01 17:12 | PCM.POSTANE2 ---
Anesthesia Postop Eval I Sum Postop Eval Completion status Anesthesia document: Postop Eval 1 completed: Yes Anesthesia Postop Eval I Summary Anesthesia Postop Eval I Summary: Anesthesia Postop Eval I: Assessment Summary Airway patent Yes 09/01/24 10:15 [email or web address] Spontaneous unlabored Yes 09/01/24 10:15 [email or web address] respirations Mental status Asleep 09/01/24 10:15 [email or web address] nausea No 09/01/24 10:15 [email or web address] Vomiting No 09/01/24 10:15 [email or web address] Anesthesia Postop Eval I: Fluid Summary Crystalloid volume administer 600 09/01/24 10:15 [email or web address] (ml) Colloids volume administered ( ml) Blood Product volume administered (ml) Total IV fluid infused 600 09/01/24 10:15 [email or web address] Anesthesia Postop Eval I: Summary Notes Anesthesia Complication No 09/01/24 10:15 [email or web address] Anesthesia Complication Comment: Post-operative progress note Anesthesia: Postop Eval II Evaluation Mental status: Awake and Calm Pain Level: 0 nausea: No Vomiting: No Complications Anesthesia Complication: No
== END 2024-09-01 10:48 | disposition home or self-care (01) ==
LOC: EN 08:10 → AC 08:12
PROVIDERS: PCP Family Medicine; Referring Provider Family Medicine; Visit Provider Surgery
PROC: 0DJD8ZZ Inspection of Lower Intestinal Tract, Via Natural or Artificial Opening Endoscopic (ICD-10-PCS; CPT 45378; principal; 2024-09-01 09:10)
DX: Z12.11 Encounter for screening for malignant neoplasm of colon (principal); K64.9 Unspecified hemorrhoids; Z79.899 Other long term (current) drug therapy
CPT/HCPCS: 45378; J2405